=== PATIENT | female | born 1965 ===

== ENCOUNTER 2017-11-05 10:11 | Day surgery (SDC) | payer OTHER ==
--- NOTE | 2017-11-05 10:17 | ED PDOC ---
Arrival/HPI - General Time Seen by Provider: 11/05/17 10:13 Historian: Patient - History of Present Illness Narrative History of Present Illness (Text): 11/05/17 10:16 52 y/o female, pmh including dm, nkda, s/p stent for the obstructing 4.7mm lt. mid ureter stone noted performed on the 11/02/2017, c/o lt. flank pain x 1 week. Pt. stated that she had stent placed on the lt. renal on 10/29/2017, discharge home and told to follow up with the [facility] [place]" by Dr. Patel with the tylenol#3 prescribed to her. Pt. stated that she still has pain which has not completely resolved, no fever or chills, on levaquin now for her renal stone, pain is making her nauseous, no night sweat, no dizziness, no change in vision, no numbness or tingling, no other medical or psychological complaints. Past Medical History - Provider Review Nursing Documentation Reviewed: Yes - Infectious Disease Hx of Infectious Diseases: None - Cardiac Hx Cardiac Disorders: No - Pulmonary Hx Respiratory Disorders: No - Neurological Hx Neurological Disorder: No - HEENT Hx HEENT Disorder: No - Renal Hx Renal Disorder: No - Endocrine/Metabolic Hx Endocrine Disorders: Yes Hx Diabetes Mellitus Type 2: Yes (takes po tabs and victoza) - Hematological/Oncological Hx Blood Disorders: No - Integumentary Hx Dermatological Disorder: No - Musculoskeletal/Rheumatological Hx Musculoskeletal Disorders: Yes Hx Back Pain: Yes Hx Herniated Disk: Yes Other/Comment: HX. TEAR RIGHT SHOULDER. - Gastrointestinal Hx Gastrointestinal Disorders: No - Genitourinary/Gynecological Hx Genitourinary Disorders: Yes Hx Incontinence: Yes - Psychiatric Hx Psychophysiologic Disorder: No Hx Substance Use: No - Surgical History Hx Section: Yes Hx Musculoskeletal Surgery: Yes (RIGHT SHOULDER TEAR REPAIRED) Other/Comment: ETOPIC PREG. SURGERY DONE ONE TUBE AND OVARY REMOVED-PT. BELIEVES RIGHT SIDE. LOWER BACK SURGERY; arm/jaw surgery - Anesthesia Hx Anesthesia: Yes Hx Anesthesia Reactions: No Hx Malignant Hyperthermia: No Family/Social History - Physician Review Nursing Documentation Reviewed: Yes Family/Social History: Unknown Family HX Smoking Status: Never Smoked Hx Alcohol Use: Yes Hx Substance Use: No Allergies/Home Meds Allergies/Adverse Reactions: Allergies No Known Allergies Allergy (Verified 11/05/17 10:29) Home Medications: Home Meds Medication Instructions Recorded Confirmed Metformin HCl 1,000 mg PO BID 10/04/15 11/05/17 Liraglutide [Victoza 2-Nav] 0.6 mg SQ DAILY 10/29/17 11/05/17 Review of Systems - Review of Systems Constitutional: absent: Fatigue, Fevers ENT: absent: Hearing Changes Respiratory: absent: SOB, Cough Cardiovascular: absent: Chest Pain Gastrointestinal: Nausea, Other (lt. flank). absent: Abdominal Pain, Vomiting Musculoskeletal: absent: Arthralgias, Back Pain, Myalgias Skin: absent: Rash, Pruritis, Skin Lesions Neurological: absent: Headache, Dizziness Psychiatric: absent: Anxiety, Depression Physical Exam Vital Signs Reviewed: Yes Vital Signs Temp Pulse Resp BP Pulse Ox 11/05/17 11:45 72 18 123/69 99 11/05/17 10:21 98.2 F 79 18 112/73 98 Temperature: Afebrile Blood Pressure: Normal Pulse: Regular Respiratory Rate: Normal Appearance: Positive for: Well-Appearing, Non-Toxic, Comfortable Pain Distress: Moderate Mental Status: Positive for: Alert and Oriented X 3 - Systems Exam Head: Present: Atraumatic, Normocephalic Pupils: Present: PERRL Extroacular Muscles: Present: EOMI Conjunctiva: Present: Normal Mouth: Present: Moist Mucous Membranes Neck: Present: Normal Range of Motion Respiratory/Chest: Present: Clear to Auscultation, Good Air Exchange. No: Respiratory Distress, Accessory Muscle Use Cardiovascular: Present: Regular Rate and Rhythm, Normal S1, S2. No: Murmurs Abdomen: Present: Tenderness (lt. flank), Normal Bowel Sounds. No: Distention, Peritoneal Signs, Rebound, Guarding Back: Present: Normal Inspection Upper Extremity: Present: Normal Inspection. No: Cyanosis, Edema Lower Extremity: Present: Normal Inspection. No: Edema Neurological: Present: GCS=15, Speech Normal, Motor Func Grossly Intact, Gait Normal, Memory Normal Skin: Present: Warm, Dry, Normal Color. No: Rashes Psychiatric: Present: Alert, Oriented x 3, Normal Insight, Normal Concentration Medical Decision Making ED Course and Treatment: 11/05/17 10:31 -Labs/ua -CT abdomen and pelvis -IVF/toradol -Observe and reassess 11/05/17 11:16 -Dr. Patel called, awared of the patient in the ER and patient called him as well, will take the patient to the OR today again, no imaging needed, admit to him for same day surgery and he will follow up any pending labs and follow up care. -I discussed with DR. Ornelas, agreed on the admission and request me to put in the admission. -CT abdomen/pelvis imaged canceled. 11/05/17 12:26 -Pt. is on the oral fluoroquinolones, UA show trace leuk but she has no urinary symptoms. - Lab Interpretations Lab Results: 11/05/17 10:40 11/05/17 10:40 Lab Results 11/05/17 11:45: Urine Color Yellow, Urine Appearance Turbid, Urine pH 6.5, Ur Specific [place] 1.015, Urine Protein 30 H, Urine Glucose (UA) Negative, Urine Ketones Negative, Urine Blood Large H, Urine Nitrate Negative, Urine Bilirubin Negative, Urine Urobilinogen 0.2, Ur Leukocyte Esterase Trace H, Urine RBC Tntc , Urine WBC 0 - 2, Urine Bacteria Trace 11/05/17 10:40: WBC 8.0, RBC 4.36, Hgb 13.7, Hct 40.2, MCV 92.2, MCH 31.4, MCHC 34.1, RDW 12.9, Plt Count 202, MPV 11.4 H, Gran % 48.0 L, Lymph % (Auto) 42.0 H , [place] % (Auto) 6.5 H, Eos % (Auto) 2.9, Baso % (Auto) 0.6, Gran # 3.86, Lymph # 3.4, [place] # 0.5, Eos # 0.2, Baso # 0.05 11/05/17 10:40: Beta HCG, Quant < 2.39 11/05/17 10:40: Sodium 142, Potassium 3.6, Chloride 101, Carbon Dioxide 27, Anion Gap 18, BUN 12, Creatinine 0.5 L, Est GFR ( Amer) > 60, Est GFR ( Non-Af Amer) > 60, Random Glucose 223 H, Calcium 10.2, Magnesium 1.7, Total Bilirubin 0.9, AST 29, ALT 46, Alkaline Phosphatase 94, Total Protein 8.1, Albumin 4.8, Globulin 3.3, Albumin/Globulin Ratio 1.5 I have reviewed the lab results: Yes - Medication Orders Current Medication Orders: Discontinued Medications Sodium Chloride (Sodium Chloride 0.9%) 500 mls @ 999 mls/hr IV .Q31M STA Stop: 11/05/17 10:55 Last Admin: 11/05/17 10:39 Dose: 999 mls/hr eMAR Start Stop Document 11/05/17 10:39 TA (Rec: 11/05/17 10:39 TA [id number]) Intravenous Solution Start Date 11/05/17 Start Time 10:39 Ketorolac Tromethamine (Toradol) 30 mg IVP STAT STA Stop: 11/05/17 10:26 Last Admin: 11/05/17 10:40 Dose: 30 mg MAR Pain Assessment Document 11/05/17 10:40 TA (Rec: 11/05/17 10:40 TA [id number]) Pain Reassessment Is this a pain reassessment? No Sleep Is patient sleeping during reassessment? No Presence of Pain Presence of Pain Yes Pain Scale Used Pain Scale Used Numeric Location Pain Location Body Site Abdomen Generalized Description Description Sharp Intensity of Pain at present 10 Acceptable Level of Pain 0 Pain Behavior Moaning Guarding IVP Administration Document 11/05/17 10:40 TA (Rec: 11/05/17 10:40 TA [id number]) Charges for Administration # of IVP Administrations 1 - PA / CATTLE DEHORNER / Resident Statement /DO has reviewed & agrees with the documentation as recorded. Disposition/Present on Arrival - Present on Arrival Any Indicators Present on Arrival: No History of DVT/PE: No History of Uncontrolled Diabetes: No Urinary Catheter: No History of Decub. Ulcer: No History Surgical Site Infection Following: None - Disposition Have Diagnosis and Disposition been Completed?: Yes Diagnosis: Flank pain, Kidney stone Disposition: HOSPITALIZED Disposition Time: 11:18 Patient Plan: Admission Patient Problems: Current Active Problems Problem Status Onset Kidney stone Acute Flank pain Acute Condition: STABLE
[2017-11-05 10:21] VITALS: BMI 32.6
[2017-11-05] MEDS ORDERED: Sodium Chloride 0.9% 500 ML IV STA (10:25)
[2017-11-05 10:48] LABS: BASO # 0.05 K/mm3 (0.0-2.0); BASO % 0.6 % (0.0-3.0); EOS # 0.2 (0.0-0.7); EOS % 2.9 % (1.5-5.0); GRAN # 3.86 (1.4-6.5); HEMOGLOBIN 13.7 g/dL (12.0-16.0); LYMPH # 3.4 (1.2-3.4); MEAN CELL VOLUME 92.2 fl (80.0-105.0); MEAN CORPUSCULAR HEMOGLOBIN 31.4 pg (25.0-35.0); MEAN CORPUSCULAR HGB CONC 34.1 g/dl (31.0-37.0); MEAN PLATELET VOLUME 11.4 fl (7.0-11.0); MONO # 0.5 (0.1-0.6); MONO % 6.5 % (1.0-6.0); RBC 4.36 10^6/uL (3.5-6.1); RED CELL DISTRIBUTION WIDTH 12.9 % (11.5-14.5)
[2017-11-05 11:10] LABS: ALB/GLOB RATIO 1.5 (1.1-1.8); ALBUMIN 4.8 g/dL (3.0-4.8); ALT/SGPT 46 U/L (7-56); AST/SGOT 29 U/L (14-36); BLOOD UREA NITROGEN 12 mg/dL (7-21); CALCIUM 10.2 mg/dL (8.4-10.5); GFR AFRICAN-AMERICAN > 60; GFR NON-AFRICAN AMERICAN > 60; MAGNESIUM 1.7 mg/dL (1.7-2.2)
[2017-11-05 12:09] LABS: PH,URINE 6.5 (4.7-8.0); URINE BILIRUBIN NEGATIVE (NEGATIVE); URINE BLOOD LARGE (NEGATIVE); URINE GLUCOSE (UA) NEGATIVE (NEGATIVE); URINE LEUKOCYTE ESTERASE TRACE Leu/uL (NEGATIVE); URINE NITRATE NEGATIVE (NEGATIVE); URINE PROTEIN 30 mg/dL (<30 mg/dL); URINE UROBILINOGEN 0.2 E.U./dL (<1 E.U./dL)
[2017-11-05 12:11] LABS: URINE APPEARANCE TURBID (CLEAR); URINE COLOR YELLOW (YELLOW)
[2017-11-05 12:18] LABS: URINE RBC TNTC /hpf (0-2); URINE WBC 0 - 2 /hpf (0-6)
[2017-11-05 12:19] LABS: URINE BACTERIA TRACE (NEG)
[2017-11-05 12:25] VITALS: RESP 20
[2017-11-05] MEDS ORDERED: Iohexol 240 (50 ml) ONE (13:31)
[2017-11-05] MEDS ORDERED: cefTRIAXone (Rocephin) 1 gm Inj ONE (13:31)
[2017-11-05] MEDS ORDERED: Midazolam 2 MG/2 ML VIAL ONE (13:32)
[2017-11-05] MEDS ORDERED: Propofol 10 mg/ml Inj (20 ML) ONE (13:32)
[2017-11-05] MEDS ORDERED: cefTRIAXone 1 gm 1 GM/100 ML BAG IVPB STA (13:42)
[2017-11-05] MEDS ORDERED: Oxycodone/Acetaminophen 5/325 mg Tab PO PRN (13:46)
[2017-11-05] MEDS ORDERED: HYDROmorphone 0.5 mg/0.5 ml ISec IVP PRN (14:24)
[2017-11-05] MEDS ORDERED: Lactated Ringer's 1,000 ML IV SCH (14:30)
[2017-11-05] MEDS ORDERED: HYDROmorphone 0.5 mg/0.5 ml ISec ONE (14:56)
[2017-11-05] MEDS ORDERED: HYDROmorphone 0.5 mg/0.5 ml ISec IVP ONE (14:58)
[2017-11-05 16:13] VITALS: PULSE 69; TEMP 97.6; O2SAT 97
[2017-11-05 16:34] VITALS: BP 121/75
--- NOTE | 2017-11-05 17:44 | RAD ---
PROCEDURE: Fluoroscopy up to 1 hr. HISTORY: CYSTO / STENT REMOVAL / RETROGRADE PYELOGRAM (LEFT) COMPARISON: None TECHNIQUE: Standard protocol for this study/examination. FINDINGS: Total fluoroscopic time (continuous mode) utilized during the procedure: 4.4 seconds. Total exam DLP: (mGy): 2.21 IMPRESSION: Less than 1 hr fluoroscopic time utilized during performance of the procedure.
--- NOTE | 2017-11-06 01:16 | HP ---
REASON FOR ADMISSION: Treatment of stones. HISTORY OF PRESENT ILLNESS: Ms. Jauregui is a very pleasantly lady, I met her last week. We put a stent in for obstructing stone, we then did an ESWL. At this point, though she is complaining that the stent is bothering her. We were discussing options where I would get the stent out. We did now bring her into Emergency. She went to the Emergency Room. We will bring her to the OR for immediate cysto and stent removal. At the same time though because she has not removed her stones, she said she but she is not sure. Because of this, we are going to actually bring her to the operating room here instead of doing in the office as an emergency and while removing the stent, we are going to also look to make sure there is no residual stones. We did an ESWL. See the previously dictated notes from the [facility]. After discussing options, we are going to the OR immediately. PAST MEDICAL HISTORY: No change since her previous admission. PAST SURGICAL HISTORY: No change since her previous admission. REVIEW OF SYSTEMS: Listed above, otherwise noncontributory. SOCIAL HISTORY: She is here with her boyfriend who has escorted [facility] to the [facility]. PHYSICAL EXAMINATION GENERAL: A well-nourished female, in no apparent distress. She is currently resting comfortably, with a little grimace on her face, she has that look of discomfort. VITAL SIGNS: As noted. ABDOMEN: No real CVA tenderness. DIAGNOSES: Gross hematuria, voiding dysfunction, lot of stent discomfort, urolithiasis, hematuria, hydronephrosis. A very pleasant lady, she is 52 years old. We discussed options at length. At this point, it is before the weekend, I discussed the options, I am concerned about taking up this stent before, but she states her stent is bothering her too much, causing too much discomfort and hematuria. After discussing all the options at length with the patient, we are planning to give the following, we are going to move to the operating room today via the ER. Actually, I removed the stent. When I removed the stent, I was also planning the ureteroscope to make sure everything is okay. If there is any left over stones, I will basket them. I discussed this with the patient. I also explained anything which is indicated in the bladder and the ureter, I will take care of. If they stuff residual up in the kidney, we are not chasing that today. Further plans will follow. Plan is for antibiotic prophylaxis, patient to go to OR immediately and then further plans will follow. Gary Patel MD
--- NOTE | 2017-12-06 20:05 | OP ---
PROCEDURE DATE: 11/05/2017 PREOPERATIVE DIAGNOSES: Urolithiasis, hematuria, hydronephrosis, renal colic. POSTOPERATIVE DIAGNOSES: Urolithiasis, hematuria, hydronephrosis, renal colic. PROCEDURE: Cystoscopy, removal of the double-J stent, a ureteroscopy, a laser lithotripsy, insertion of a double-J stent. COMPLICATIONS: There were no complications. All of this was done on the left side. FINDINGS: There is ureteral stone. INDICATIONS: See history and physical, see also previous notes. Patient had presented previously, we had put a stent in for an emergency, had a cystoscopy and stent insertion. Subsequently patient went home. She was feeling better. She is still having some discomfort. We brought urgent emergent procedure. We have discussed the options with the patient. Risks, benefits, and alternatives were discussed, as well we discussed the ureteroscopy laser. Only after we discussed at length, she is here now for the above procedure. DESCRIPTION OF PROCEDURE: After obtaining informed consent, the patient was brought to the OR, placed on the table. Routine monitors were placed. Time-out was called to confirm the patient, positioning, etc,. The cystoscope was introduced via the urethra. The old double-J stent was identified and removed it with the grasping forceps. The wire was passed up to the kidney without difficulty. Now we kept the safety wire in place, and with the safety wire in place, we went adjacent to that wire and we went up with the ureteroscope. Then with the ureteroscope, we identified the stone and we provided laser energy to the stone, so we fragmented it very nicely. . We then passed a double-J stent with dangles. Patient tolerated the procedure without complications. Gary Patel MD [facility]
== END 2017-11-05 18:00 | disposition home or self-care (01) ==
LOC: ED 10:11 → SDS 11:14
PROVIDERS: ATTEND Urology
DX: N13.2 Hydronephrosis with renal and ureteral calculous obstruction (principal); R31.0 Gross hematuria; E11.9 Type 2 diabetes mellitus without complications; Z79.84 Long term (current) use of oral hypoglycemic drugs
CPT/HCPCS: 52356; 76000; 80053; 81001; 83735; 84702; 85025; 96374; 99284; C1769; J0696; J1170; J1885; J2250; J2704; J3010; J7040; J7120 ×2; Q9966

== ENCOUNTER 2017-12-01 13:41 | Emergency (ER) | payer OTHER ==
[2017-12-01 13:42] VITALS: BMI 32.6
[2017-12-01 14:16] VITALS: RESP 18; TEMP 98
--- NOTE | 2017-12-01 14:59 | ED PDOC ---
Arrival/HPI <Faviola Velasco - Last Filed: 12/02/17 00:12> <Anival Hadley - Last Filed: 12/02/17 02:57> - General Chief Complaint: Abdominal Pain Time Seen by Provider: 12/01/17 14:20 - History of Present Illness Narrative History of Present Illness (Text): 12/01/17 14:54 Pt is a 52 yo F complaining of LLQ pain that refers to the back x 3 days. Pt states she was diagnosed w kidney stones and treated with lithotripsy earlier this month. Pt reports that the pain resolved for awhile and began to intensify 3 days ago but increased daily along with chills. She reports eating breakfast this morning but no BM today; is voiding with a burning sensation. Denies hematuria, fever, sob, cp, nausea, vomiting, diarrhea ,GIB or sick contacts. (Faviola Velasco) Past Medical History - Infectious Disease Hx of Infectious Diseases: None - Reproductive Menopause: Yes - Cardiac Hx Cardiac Disorders: No - Pulmonary Hx Respiratory Disorders: No - Neurological Hx Neurological Disorder: No - HEENT Hx HEENT Disorder: No - Renal Hx Renal Disorder: No - Endocrine/Metabolic Hx Endocrine Disorders: Yes Hx Diabetes Mellitus Type 2: Yes (takes po tabs and victoza) - Hematological/Oncological Hx Blood Transfusions: Yes - Integumentary Hx Dermatological Disorder: No - Musculoskeletal/Rheumatological Hx Musculoskeletal Disorders: Yes - Gastrointestinal Hx Gastrointestinal Disorders: No - Genitourinary/Gynecological Hx Genitourinary Disorders: Yes Hx Incontinence: Yes - Psychiatric Hx Psychophysiologic Disorder: No Hx Substance Use: No - Surgical History Hx Section: Yes Hx Musculoskeletal Surgery: Yes (RIGHT SHOULDER TEAR REPAIRED) Other/Comment: ETOPIC PREG. SURGERY DONE ONE TUBE AND OVARY REMOVED-PT. BELIEVES RIGHT SIDE. LOWER BACK SURGERY; arm/jaw surgery - Anesthesia Hx Anesthesia Reactions: No Hx Malignant Hyperthermia: No <Faviola Velasco - Last Filed: 12/02/17 00:12> Family/Social History - Physician Review Nursing Documentation Reviewed: Yes Family/Social History: Unknown Family HX Smoking Status: Never Smoked Hx Alcohol Use: Yes Hx Substance Use: No <Faviola Velasco - Last Filed: 12/02/17 00:12> Allergies/Home Meds <Faviola Velasco - Last Filed: 12/02/17 00:12> <Anival Hadley - Last Filed: 12/02/17 02:57> Allergies/Adverse Reactions: Allergies No Known Allergies Allergy (Verified 12/01/17 14:16) Home Medications: Home Meds Medication Instructions Recorded Confirmed Metformin HCl 1,000 mg PO BID 10/04/15 12/01/17 Liraglutide [Victoza 2-Nav] 0.6 mg SQ DAILY 10/29/17 12/01/17 Review of Systems - Review of Systems Constitutional: Normal Eyes: Normal ENT: Normal Respiratory: Normal Cardiovascular: Normal Gastrointestinal: Abdominal Pain (LLQ ) Genitourinary Female: Normal Musculoskeletal: Back Pain (left low back) Skin: Normal Neurological: Normal Endocrine: Normal Hemo/Lymphatic: Normal Psychiatric: Normal <Faviola Velasco - Last Filed: 12/02/17 00:12> Physical Exam Temperature: Afebrile Blood Pressure: Normal Pulse: Regular Respiratory Rate: Normal Appearance: Positive for: Uncomfortable Pain Distress: Moderate Mental Status: Positive for: Alert and Oriented X 3 - Systems Exam Head: Present: Atraumatic, Normocephalic Pupils: Present: PERRL Extroacular Muscles: Present: EOMI Conjunctiva: Present: Normal Mouth: Present: Moist Mucous Membranes Neck: Present: Normal Range of Motion Respiratory/Chest: Present: Clear to Auscultation, Good Air Exchange. No: Respiratory Distress, Accessory Muscle Use Cardiovascular: Present: Regular Rate and Rhythm, Normal S1, S2. No: Murmurs Abdomen: Present: Tenderness (LLQ), Normal Bowel Sounds. No: Distention, Peritoneal Signs Back: Present: Normal Inspection, CVA Tenderness (left ) Upper Extremity: Present: Normal Inspection. No: Cyanosis, Edema Lower Extremity: Present: Normal Inspection. No: Edema Neurological: Present: GCS=15, CN II-XII Intact, Speech Normal Skin: Present: Warm, Dry, Normal Color. No: Rashes Psychiatric: Present: Alert, Oriented x 3, Normal Insight, Normal Concentration <Faviola Velasco - Last Filed: 12/02/17 00:12> Vital Signs Temp Pulse Resp BP Pulse Ox 12/01/17 18:37 18 99 12/01/17 16:55 75 18 128/65 98 12/01/17 15:18 79 18 132/69 98 12/01/17 14:13 98 F 82 18 136/72 99 Medical Decision Making <Faviola Velasco - Last Filed: 12/02/17 00:12> <JomarAmirahAlainaCristopher - Last Filed: 12/02/17 02:57> ED Course and Treatment: 12/01/17 14:59 Pt is a 52 yo F complaining of LLQ pain that refers to the back x 3 days. Plan: cbc w diff, cmp, ua, CT abd and pelvis fluids and pain management Progress Note: morphine 2mg ivp NS 1L bolus CT findings benign Advised pt to f/u w her hob grinder if pain continues Dispo home on NSAIDs VSS and Pt ambulated out of ED without issue 12/01/17 15:03 12/02/17 00:10 (Faviola Velasco) - Lab Interpretations Lab Results: 12/01/17 15:00 12/01/17 15:00 Lab Results 12/01/17 17:27: Influenza Typ A,B (EIA) Negative for flu a/b 12/01/17 15:00: Sodium 138, Potassium 3.7, Chloride 102, Carbon Dioxide 21, Anion Gap 18, BUN 18, Creatinine 0.5 L, Est GFR ( Amer) > 60, Est GFR ( Non-Af Amer) > 60, Random Glucose 206 H, Calcium 10.6 H, Total Bilirubin 1.1, AST 24, ALT 32, Alkaline Phosphatase 90, Total Protein 7.8, Albumin 4.6, Globulin 3.2, Albumin/Globulin Ratio 1.4 12/01/17 15:00: WBC 8.2, RBC 4.41, Hgb 14.1, Hct 40.5, MCV 91.8, MCH 32.0, MCHC 34.8, RDW 13.1, Plt Count 165, MPV 11.6 H, Gran % 49.1 L, Lymph % (Auto) 42.7 H , [place] % (Auto) 6.6 H, Eos % (Auto) 1.2 L, Baso % (Auto) 0.4, Gran # 4.04, Lymph # (Auto) 3.5 H, [place] # (Auto) 0.5, Eos # (Auto) 0.1, Baso # (Auto) 0.03 12/01/17 14:56: Urine Color Yellow, Urine Appearance Clear, Urine pH 5.5, Ur Specific [place] >= 1.030, Urine Protein Negative, Urine Glucose (UA) 100 H, Urine Ketones Trace H, Urine Blood Negative, Urine Nitrate Negative, Urine Bilirubin Negative, Urine Urobilinogen 0.2, Ur Leukocyte Esterase Negative - RAD Interpretation Radiology Orders: 12/01/17 14:51 ABDOMEN & PELVIS [ABD & PELVIS W/O PO OR IV CONT] [CT] Stat - Medication Orders Current Medication Orders: Discontinued Medications Sodium Chloride (Sodium Chloride 0.9%) 1,000 mls @ 999 mls/hr IV .Q1H1M STA Stop: 12/01/17 16:04 Last Admin: 12/01/17 16:13 Dose: 999 mls/hr eMAR Start Stop Document 12/01/17 16:13 [email or web address] (Rec: 12/01/17 16:14 [email or web address] [facility] [id number] Intravenous Solution Start Date 12/01/17 Start Time 16:14 End Date 12/01/17 Morphine Sulfate (Morphine) 2 mg IVP STAT STA Stop: 12/01/17 15:05 Last Admin: 12/01/17 16:13 Dose: 2 mg MAR Pain Assessment Document 12/01/17 16:13 [email or web address] (Rec: 12/01/17 16:13 [email or web address] [facility] [id number] Pain Reassessment Is this a pain reassessment? No Sleep Is patient sleeping during reassessment? No Presence of Pain Presence of Pain Yes Pain Scale Used Pain Scale Used Numeric Location Pain Location Body Site Abdomen Description Description Constant Intensity of Pain at present 8 Pain Behavior Facial Grimacing Aggravating Factors Changing Position Alleviating Factors/Management Medication Techniques Alleviating Factors Medication IVP Administration Document 12/01/17 16:13 [email or web address] (Rec: 12/01/17 16:13 [email or web address] [facility] [id number] Charges for Administration # of IVP Administrations 1 Ondansetron HCl (Zofran Inj) 4 mg IVP STAT STA Stop: 12/01/17 15:43 Last Admin: 12/01/17 16:12 Dose: 4 mg IVP Administration Document 12/01/17 16:12 [email or web address] (Rec: 12/01/17 16:12 [email or web address] [facility] [id number] Charges for Administration # of IVP Administrations 1 - PA / [employer]STAIRS MAID / Resident Statement / has reviewed & agrees with the documentation as recorded. <JomarValCristopher - Last Filed: 12/02/17 02:57> Disposition/Present on Arrival - Present on Arrival Any Indicators Present on Arrival: Yes History of DVT/PE: No History of Uncontrolled Diabetes: No Urinary Catheter: No History of Decub. Ulcer: No History Surgical Site Infection Following: None - Disposition Have Diagnosis and Disposition been Completed?: Yes Disposition Time: 18:40 Patient Plan: Discharge <Faviola Velasco - Last Filed: 12/02/17 00:12> <Anival Hadley - Last Filed: 12/02/17 02:57> - Disposition Diagnosis: Abdominal pain, Flank pain, Back pain Disposition: HOME/ ROUTINE Condition: STABLE Discharge Instructions (ExitCare): Ibuprofen (By mouth), Abdominal Pain (ED), Back Pain (ED) Additional Instructions: Dear Patient, You have been diagnosed with abdominal and back pain that responds best with fluids, tylenol or ibuprofen for pain and fever and gentle movement. We recommend that you follow up with your hob grinder for evaluation of post- procedure pain that you have been experiencing. If you experience severe fever, pain, chest pain or shortness of breath of any other alarming symptoms, return to the emergency randy immediately. All the best in your recover Prescriptions: Naproxen [Naprosyn] 500 mg PO BID 5 Days #10 tablet Referrals: Iesha Villagomez DO [Primary Care Provider] - Follow up with primary Forms: [employer] ([employer])
[2017-12-01 15:15] LABS: BASO # 0.03 K/mm3 (0.0-2.0); BASO % 0.4 % (0.0-3.0); EOS # 0.1 (0.0-0.7); EOS % 1.2 % (1.5-5.0); GRAN # 4.04 (1.4-6.5); GRAN % 49.1 % (50.0-68.0); HEMOGLOBIN 14.1 g/dL (12.0-16.0); LYMPH # 3.5 (1.2-3.4); LYMPH % 42.7 % (22.0-35.0); MEAN CELL VOLUME 91.8 fl (80.0-105.0); MEAN CORPUSCULAR HGB CONC 34.8 g/dl (31.0-37.0); MEAN PLATELET VOLUME 11.6 fl (7.0-11.0); MONO # 0.5 (0.1-0.6); MONO % 6.6 % (1.0-6.0); RBC 4.41 10^6/uL (3.5-6.1); RED CELL DISTRIBUTION WIDTH 13.1 % (11.5-14.5); WHITE BLOOD COUNT 8.2 10^3/ul (4.5-11.0)
[2017-12-01 15:20] LABS: PH,URINE 5.5 (4.7-8.0); URINE BILIRUBIN NEGATIVE (NEGATIVE); URINE BLOOD NEGATIVE (NEGATIVE); URINE GLUCOSE (UA) 100 mg/dL (NEGATIVE); URINE LEUKOCYTE ESTERASE NEGATIVE Leu/uL (NEGATIVE); URINE NITRATE NEGATIVE (NEGATIVE); URINE PROTEIN NEGATIVE mg/dL (<30 mg/dL); URINE UROBILINOGEN 0.2 E.U./dL (<1 E.U./dL)
[2017-12-01 15:21] LABS: URINE APPEARANCE CLEAR (CLEAR); URINE COLOR YELLOW (YELLOW)
[2017-12-01 15:32] LABS: ALB/GLOB RATIO 1.4 (1.1-1.8); ALBUMIN 4.6 g/dL (3.0-4.8); ALT/SGPT 32 U/L (7-56); AST/SGOT 24 U/L (14-36); BLOOD UREA NITROGEN 18 mg/dL (7-21); CALCIUM 10.6 mg/dL (8.4-10.5); GFR AFRICAN-AMERICAN > 60; GFR NON-AFRICAN AMERICAN > 60
[2017-12-01] MEDS: Morphine 4 mg/ml ISec IVP STA (16:13)
[2017-12-01] MEDS: Sodium Chloride 0.9% 1,000 ML IV STA (16:13)
[2017-12-01 16:56] VITALS: BP 128/65; PULSE 75
--- NOTE | 2017-12-01 17:05 | CT ---
PROCEDURE: CT Abdomen and Pelvis without intravenous contrast HISTORY: Renal calculus disease presenting with left-sided flank pain. Relevant surgical history: Oophorectomy. COMPARISON: 10/29/2017 TECHNIQUE: Unenhanced study. Neither oral nor intravenous contrast administered. Radiation dose: Total exam DLP = 980.24 mGy-cm. This CT exam was performed using one or more of the following dose reduction techniques: Automated exposure control, adjustment of the mA and/or kV according to patient size, and/or use of iterative reconstruction technique. FINDINGS: LOWER THORAX: Unremarkable. LIVER: Unremarkable. No gross lesion or ductal dilatation. GALLBLADDER AND BILE DUCTS: Unremarkable. PANCREAS: Unremarkable. No gross lesion or ductal dilatation. SPLEEN: Unremarkable. ADRENALS: Unremarkable. No mass. KIDNEYS AND URETERS: Unremarkable. No hydronephrosis. No solid mass. Obstructing calculus apparent on the previous study left ureter has passed. No evidence of hydroureter, hydronephrosis, calculus disease. VASCULATURE: Unremarkable. No aortic aneurysm. BOWEL: Unremarkable. No obstruction. No gross mural thickening. APPENDIX: Unremarkable. Normal appendix. PERITONEUM: Unremarkable. No free fluid. No free air. LYMPH NODES: Unremarkable. No enlarged lymph nodes. BLADDER: Unremarkable. REPRODUCTIVE: Unremarkable. BONES: No acute fracture. OTHER FINDINGS: None. IMPRESSION: Unremarkable non contrast enhanced CT of the abdomen and pelvis.
[2017-12-01 18:38] VITALS: O2SAT 99
== END 2017-12-01 18:46 | disposition home or self-care (01) ==
LOC: ED 13:41
DX: R10.9 Unspecified abdominal pain (principal); M54.9 Dorsalgia, unspecified; E11.9 Type 2 diabetes mellitus without complications
CPT/HCPCS: 74176; 80053; 81003; 85025; 87804; 96374; 96375; 99284; J2270; J2405; J7040

== ENCOUNTER 2018-02-25 20:59 | Observation (INO) | payer OTHER ==
[2018-02-25 21:11] VITALS: BMI 32.1
[2018-02-25] MEDS ORDERED: Sodium Chloride 0.9% 1,000 ML IV STA (21:32)
[2018-02-25] MEDS ORDERED: HYDROmorphone 0.5 mg/0.5 ml ISec IVP STA (21:32)
--- NOTE | 2018-02-25 21:51 | ED PDOC ---
Arrival/HPI - General Chief Complaint: Abdominal Pain Time Seen by Provider: 02/25/18 21:18 Historian: Patient - History of Present Illness Narrative History of Present Illness (Text): 02/25/18 21:49 52 year old female whose past medical history includes diabetes, kidney stone s/ p stent for the obstructing 4.7mm lt. mid ureter stone noted performed on the , presents to the emergency department complaining of left flank discomfort with urinary blood clots. Patient states she had another stent placed 4 days ago by her substation inspector Dr. Patel. patient states she was having mild discomfort following procedure. However, today patient reports worsening discomfort. She was seen by her Doctor and had her stent removed today , but continues to be symptomatic. Patient denies any fever, chills, chest pain , shortness of breath, nausea, vomiting, diarrhea, neck pain, headache, dizziness, or any other complaints. Solids Control Technician: Dr. Patel. PMD: Dr. Villagomez Time/Duration: 1 week Symptom Onset: Gradual Symptom Course: Worsening Activities at Onset: Light Context: Home Past Medical History - Provider Review Nursing Documentation Reviewed: Yes - Infectious Disease Hx of Infectious Diseases: None - Reproductive Menopause: No - Cardiac Hx Cardiac Disorders: No - Pulmonary Hx Respiratory Disorders: No - Neurological Hx Neurological Disorder: No - HEENT Hx HEENT Disorder: No - Renal Hx Renal Disorder: No - Endocrine/Metabolic Hx Endocrine Disorders: Yes Hx Diabetes Mellitus Type 2: Yes (takes po tabs and victoza) - Hematological/Oncological Hx Blood Transfusions: Yes - Integumentary Hx Dermatological Disorder: No - Musculoskeletal/Rheumatological Hx Musculoskeletal Disorders: Yes - Gastrointestinal Hx Gastrointestinal Disorders: No - Genitourinary/Gynecological Hx Genitourinary Disorders: Yes Hx Incontinence: Yes - Psychiatric Hx Psychophysiologic Disorder: No Hx Substance Use: No - Surgical History Hx Section: Yes Hx Musculoskeletal Surgery: Yes (RIGHT SHOULDER TEAR REPAIRED) Other/Comment: ETOPIC PREG. SURGERY DONE ONE TUBE AND OVARY REMOVED-PT. BELIEVES RIGHT SIDE. LOWER BACK SURGERY; arm/jaw surgery - Anesthesia Hx Anesthesia Reactions: No Hx Malignant Hyperthermia: No Family/Social History - Physician Review Nursing Documentation Reviewed: Yes Family/Social History: No Known Family HX Smoking Status: Never Smoked Hx Alcohol Use: Yes Hx Substance Use: No Allergies/Home Meds Allergies/Adverse Reactions: Allergies No Known Allergies Allergy (Verified 12/01/17 14:16) Home Medications: Home Meds Medication Instructions Recorded Confirmed Metformin HCl 1,000 mg PO BID 10/04/15 12/01/17 Liraglutide [Victoza 2-Nav] 0.6 mg SQ DAILY 10/29/17 12/01/17 Review of Systems - Physician Review All systems were reviewed & negative as marked: Yes - Review of Systems Constitutional: absent: Fevers, Other (Chills) Respiratory: absent: SOB Cardiovascular: absent: Chest Pain Gastrointestinal: absent: Diarrhea, Nausea, Vomiting Genitourinary Female: Hematuria. absent: Dysuria, Frequency Musculoskeletal: Back Pain (Left flank discomfort). absent: Neck Pain Neurological: absent: Headache, Dizziness Physical Exam Vital Signs Reviewed: Yes Vital Signs Temp Pulse Resp BP Pulse Ox 02/26/18 02:00 88 16 122/76 99 02/26/18 00:18 77 16 122/73 99 02/25/18 22:48 93 H 16 130/83 99 02/25/18 21:07 97.6 F 106 H 20 139/85 98 Temperature: Afebrile Blood Pressure: Normal Pulse: Tachycardic Respiratory Rate: Normal Appearance: Positive for: Well-Appearing, Non-Toxic, Comfortable Pain Distress: Mild Mental Status: Positive for: Alert and Oriented X 3 Finger Stick Blood Glucose: 282 - Systems Exam Head: Present: Atraumatic, Normocephalic Pupils: Present: PERRL Extroacular Muscles: Present: EOMI Conjunctiva: Present: Normal Mouth: Present: Moist Mucous Membranes Neck: Present: Normal Range of Motion Respiratory/Chest: Present: Clear to Auscultation, Good Air Exchange. No: Respiratory Distress, Accessory Muscle Use Cardiovascular: Present: Regular Rate and Rhythm, Normal S1, S2. No: Murmurs Abdomen: No: Tenderness, Distention, Peritoneal Signs Back: Present: Other (Left Costovertebral Tenderness) Upper Extremity: Present: Normal Inspection. No: Cyanosis, Edema Lower Extremity: Present: Normal Inspection. No: Edema Neurological: Present: GCS=15, CN II-XII Intact, Speech Normal Skin: Present: Warm, Dry, Normal Color. No: Rashes Psychiatric: Present: Alert, Oriented x 3, Normal Insight, Normal Concentration Medical Decision Making ED Course and Treatment: 02/25/18 21:49 Impression: 52 year old female presents complaining of worsening left flank discomfort that began approximately a week ago associated with hematuria. Plan: -- CT Abd & Pelvis -- Labs -- Dilaudid, IV Fluids, Zofran Inj -- Urinalysis -- Reassess and disposition Progress Notes: EXAM: CT Abdomen and Pelvis Without Intravenous Contrast Dictated and Authenticated by: Travis Barron MD 02/25/2018 11:37 PM IMPRESSION: 1. LEFT hydroureteronephrosis without CT evidence of obstructing calculus. DDX: obstructing radiolucent stone, recently passed ureteral calculus, distal ureteral stricture , infection, distal obstructing ureteral mass. Clinical correlation and follow up are recommended. 2. Incidental/non-acute findings are described above. 02/26/18 02:12 Case discussed with who request pt. admitted to hospitalist service.He will consult.Power Equipment Technology Instructor and Dr. Edwards who is aware and agrees with the plan. Accepts patient into hospitalist service. - Lab Interpretations Lab Results: 02/25/18 22:00 02/25/18 22:00 Lab Results 02/25/18 23:45: Urine Color Red, Urine Appearance Bloody, Urine pH 6.5, Ur Specific Mcintosh 1.020, Urine Protein >=300 H, Urine Glucose (UA) 250 H, Urine Ketones Trace H, Urine Blood Large H, Urine Nitrate Positive H, Urine Bilirubin Negative, Urine Urobilinogen 1.0 H, Ur Leukocyte Esterase Moderate H, Urine RBC Tntc, Urine WBC 20 - 25, Ur Epithelial Cells 0 - 2, Urine Bacteria Mod 02/25/18 22:00: WBC 10.4 D, RBC 4.31, Hgb 13.6, Hct 38.7, MCV 89.8, MCH 31.6, MCHC 35.1, RDW 12.5, Plt Count 190, MPV 11.9 H 02/25/18 22:00: Sodium 139, Potassium 3.8, Chloride 99, Carbon Dioxide 24, Anion Gap 19, BUN 20, Creatinine 0.6 L, Est GFR ( Amer) > 60, Est GFR ( Non-Af Amer) > 60, Random Glucose 285 H, Calcium 10.0, Total Bilirubin 0.8, AST 23, ALT 30, Alkaline Phosphatase 91, Total Protein 7.6, Albumin 4.5, Globulin 3.1, Albumin/Globulin Ratio 1.4, Lipase 62 02/25/18 21:12: POC Glucose (mg/dL) 282 H I have reviewed the lab results: Yes - RAD Interpretation Radiology Orders: 02/25/18 21:35 ABD & PELVIS W/O PO OR IV CONT [CT] Stat - Medication Orders Current Medication Orders: Docusate Sodium (Colace) 100 mg PO STAT STA Stop: 02/26/18 03:47 Enoxaparin Sodium (Lovenox) 40 mg SC DAILY [facility] PRN Reason: Protocol Sodium Chloride (Sodium Chloride 0.9%) 1,000 mls @ 120 mls/hr IV .Q8H20M [facility] Ceftriaxone Sodium (Rocephin 1 Gram Ivpb) 1 gm in 100 mls @ 100 mls/hr IVPB DAILY [facility] PRN Reason: Protocol Insulin Human Regular (Humulin R Med) 0 units SC ACHS [facility] PRN Reason: Protocol Morphine Sulfate (Morphine) 2 mg IVP Q4H PRN PRN Reason: Pain, severe (8-10) Morphine Sulfate (Morphine) 1 mg IVP STAT STA Stop: 02/26/18 03:47 Non-Formulary Medication (Naproxen [Naprosyn]) 500 mg PO BID [facility] Ondansetron HCl (Zofran Inj) 4 mg IVP Q4H PRN PRN Reason: Nausea/Vomiting Pantoprazole Sodium (Protonix Ec Tab) 40 mg PO 0600 [facility] Discontinued Medications Hydromorphone HCl (Dilaudid) 1 mg IVP STAT STA Stop: 02/25/18 21:33 Last Admin: 02/25/18 22:01 Dose: 1 mg MAR Pain Assessment Document 02/25/18 22:01 JO (Rec: 02/25/18 22:01 [id number] Pain Reassessment Is this a pain reassessment? No Sleep Is patient sleeping during reassessment? No Presence of Pain Presence of Pain Yes Pain Scale Used Pain Scale Used Numeric IVP Administration Document 02/25/18 22:01 JO (Rec: 02/25/18 22:01 [id number] Charges for Administration # of IVP Administrations 1 Hydromorphone HCl (Dilaudid) 1 mg IVP STAT STA Stop: 02/26/18 02:10 Last Admin: 02/26/18 02:44 Dose: 1 mg MAR Pain Assessment Document 02/26/18 02:44 MS (Rec: 02/26/18 02:45 MS [id number]) Pain Reassessment Is this a pain reassessment? No Sleep Is patient sleeping during reassessment? No Presence of Pain Presence of Pain Yes Pain Scale Used Pain Scale Used Numeric Location Left, Right or Bilateral Left Description Description Constant Intensity of Pain at present 10 Pain Behavior Moaning Withdrawal from Touch Rubbing Site IVP Administration Document 02/26/18 02:44 MS (Rec: 02/26/18 02:45 MS [id number]) Charges for Administration # of IVP Administrations 2 Sodium Chloride (Sodium Chloride 0.9%) 1,000 mls @ 999 mls/hr IV .Q1H1M STA Stop: 02/25/18 22:32 Last Admin: 02/25/18 22:02 Dose: 999 mls/hr eMAR Start Stop Document 02/25/18 22:02 JOL (Rec: 02/25/18 22:02 [id number]) Intravenous Solution Start Date 02/25/18 Start Time 22:02 End Date 02/25/18 End time 23:03 Total Infusion Time 61 Ceftriaxone Sodium (Rocephin 1 Gram Ivpb) 1 gm in 100 mls @ 200 mls/hr IV ONCE STA PRN Reason: Protocol Stop: 02/26/18 02:38 Last Admin: 02/26/18 02:42 Dose: 200 mls/hr eMAR Start Stop Document 02/26/18 02:42 MS (Rec: 02/26/18 02:44 MS [id number]) Intravenous Solution Start Date 02/26/18 Start Time 02:44 End Date 02/26/18 End time 03:14 Total Infusion Time 30 Ondansetron HCl (Zofran Inj) 4 mg IVP ONCE ONE Stop: 02/25/18 21:33 Last Admin: 02/25/18 22:02 Dose: 4 mg IVP Administration Document 02/25/18 22:02 JOL (Rec: 02/25/18 22:02 [id number]) Charges for Administration # of IVP Administrations 1 Ondansetron HCl (Zofran Inj) 4 mg IVP ONCE ONE Stop: 02/26/18 02:10 Last Admin: 02/26/18 02:45 Dose: 4 mg IVP Administration Document 02/26/18 02:45 MS (Rec: 02/26/18 02:45 MS [id number]) Charges for Administration # of IVP Administrations 1 - Scribe Statement The provider has reviewed the documentation as recorded by the Alexandria Culp Provider Scribe Attestation: All medical record entries made by the Nateibmalena were at my direction and personally dictated by me. I have reviewed the chart and agree that the record accurately reflects my personal performance of the history, physical exam, medical decision making, and the department course for this patient. I have also personally directed, reviewed, and agree with the discharge instructions and disposition. Disposition/Present on Arrival - Present on Arrival Any Indicators Present on Arrival: No History of DVT/PE: No History of Uncontrolled Diabetes: No Urinary Catheter: No History of Decub. Ulcer: No History Surgical Site Infection Following: None - Disposition Have Diagnosis and Disposition been Completed?: Yes Diagnosis: Intractable back pain, Flank pain, Hematuria, UTI (urinary tract infection) Disposition: HOSPITALIZED Disposition Time: 02:08 Patient Plan: Observation Patient Problems: Current Active Problems Problem Status Onset Flank pain Acute Hematuria Acute Intractable back pain Acute UTI (urinary tract infection) Acute Condition: STABLE
[2018-02-25 22:14] LABS: HEMOGLOBIN 13.6 g/dL (12.0-16.0); MEAN CELL VOLUME 89.8 fl (80.0-105.0); MEAN CORPUSCULAR HEMOGLOBIN 31.6 pg (25.0-35.0); MEAN CORPUSCULAR HGB CONC 35.1 g/dl (31.0-37.0); MEAN PLATELET VOLUME 11.9 fl (7.0-11.0); RBC 4.31 10^6/uL (3.5-6.1); RED CELL DISTRIBUTION WIDTH 12.5 % (11.5-14.5); WHITE BLOOD COUNT 10.4 10^3/ul (4.5-11.0)
[2018-02-25 22:21] LABS: ALB/GLOB RATIO 1.4 (1.1-1.8); ALBUMIN 4.5 g/dL (3.0-4.8); ALT/SGPT 30 U/L (7-56); AST/SGOT 23 U/L (14-36); BLOOD UREA NITROGEN 20 mg/dL (7-21); GFR AFRICAN-AMERICAN > 60; GFR NON-AFRICAN AMERICAN > 60; LIPASE 62 U/L (23-300)
--- NOTE | 2018-02-25 23:37 | CT ---
EXAM: CT Abdomen and Pelvis Without Intravenous Contrast CLINICAL HISTORY: 52 years old, female; Pain; Abdominal pain; Flank; Left; Additional info: Left flank pain TECHNIQUE: Axial computed tomography images of the abdomen and pelvis without intravenous contrast. All CT scans at this facility use one or more dose reduction techniques, viz.: automated exposure control; ma/kV adjustment per patient size (including targeted exams where dose is matched to indication; i.e. head); or iterative reconstruction technique. Coronal and sagittal reformatted images were created and reviewed. COMPARISON: CT - ABD PELVIS W/O PO OR IV CONT 2017-12-01 16:22 FINDINGS: Limitations: Lack of intravenous contrast. Lung bases: Minimal atelectasis/scarring. RLL calcified granuloma. ABDOMEN: Liver: Fatty infiltration. Gallbladder and bile ducts: No calcified stones. No ductal dilation. Pancreas: Unremarkable. No ductal dilation. Spleen: No splenomegaly. Adrenals: No mass. Kidneys and ureters: No renal calculi. Mild to moderate stranding about LEFT kidney. [id number] pelvocaliectasis of LEFT kidney. Mildly dilated LEFT ureter. Mild stranding about LEFT ureter. Stomach and bowel: No definite mural thickening. No obstruction. PELVIS: Appendix: Normal caliber. No inflammation. Bladder: Unremarkable. No stones. Reproductive: Unremarkable as visualized. ABDOMEN and PELVIS: Intraperitoneal space: No significant fluid collection. No free air. Bones/joints: Early to mild degenerative changes of spine. Degenerative anterolisthesis of lower lumbar spine. No acute fracture. Soft tissues: Tiny umbilical hernia containing fat. Vasculature: Unremarkable. No aneurysm. Lymph nodes: No pathologically enlarged lymph nodes. IMPRESSION: 1. LEFT hydroureteronephrosis without CT evidence of obstructing calculus. DDX: obstructing radiolucent stone, recently passed ureteral calculus, distal ureteral stricture, infection, distal obstructing ureteral mass. Clinical correlation and follow up are recommended. 2. Incidental/non-acute findings are described above.
[2018-02-26 00:59] LABS: PH,URINE 6.5 (4.7-8.0); URINE BILIRUBIN NEGATIVE (NEGATIVE); URINE BLOOD LARGE (NEGATIVE); URINE GLUCOSE (UA) 250 mg/dL (NEGATIVE); URINE LEUKOCYTE ESTERASE MODERATE Leu/uL (NEGATIVE); URINE PROTEIN >=300 mg/dL (<30 mg/dL)
[2018-02-26 01:09] LABS: URINE APPEARANCE BLOODY (CLEAR); URINE COLOR RED (YELLOW)
[2018-02-26] MEDS ORDERED: HYDROmorphone 0.5 mg/0.5 ml ISec IVP STA (02:09)
[2018-02-26] MEDS ORDERED: cefTRIAXone 1 gm 1 GM/100 ML BAG IV STA (02:09)
[2018-02-26 02:15] LABS: URINE RBC TNTC /hpf (0-2)
[2018-02-26 02:16] LABS: URINE WBC 20 - 25 /hpf (0-6)
[2018-02-26 02:17] LABS: URINE BACTERIA MOD (NEG); URINE EPITHELIAL CELLS 0 - 2 /hpf (0-5)
[2018-02-26] MEDS ORDERED: Morphine 2 mg/2 mL syringe IVP STA (03:46)
[2018-02-26] MEDS ORDERED: Morphine 2 mg/2 mL syringe IVP PRN (03:46)
[2018-02-26] MEDS ORDERED: Sodium Chloride 0.9% 1,000 ML IV SCH (04:00)
--- NOTE | 2018-02-26 04:02 | CP.PCM.HP ---
<Joe Vallejo - Last Filed: 02/26/18 03:57> History of Present Illness - History of Present Illness History of Present Illness: Medicine H&P: Dr. Edwards Chief Complaint: Flank Pain HPI: 52 year old female with past medical history of Diabetes and Chronic nephrolithiasis presents with 2 day duration of left sided flank pain. Patient recently had stent removed by Dr. Patel but is still having intractible pain. Patient also complains of nausea and hematuria but denies fevers or chills. Patient further complains of left lower extremity calf pain. Review of Systems: 12 point ROS obtained and negative except as per HPI Surgical History: x1, Right salpingoophorectomy for atopic , R shdr surgery Medical History: Type II Diabetes Allergies: NKDA Surgical History: Denies tobacco, alcohol, and illicit drug use Home Meds: Per MAR, reviewed Family History: Non-contributory PMD: Dr. Villagomez Urologist: Dr. Patel Present on Admission - Present on Admission Any Indicators Present on Admission: No Past Patient History - Infectious Disease Hx of Infectious Diseases: None - Past Medical History & Family History Past Medical History?: Yes - Past Social History Smoking Status: Never Smoked - CARDIAC Hx Cardiac Disorders: No - PULMONARY Hx Respiratory Disorders: No - NEUROLOGICAL Hx Neurological Disorder: No - HEENT Hx HEENT Problems: No - RENAL Hx Chronic Kidney Disease: No - ENDOCRINE/METABOLIC Hx Endocrine Disorders: Yes Hx Diabetes Mellitus Type 2: Yes (takes po tabs and victoza) - HEMATOLOGICAL/ONCOLOGICAL Hx Blood Transfusions: Yes - INTEGUMENTARY Hx Dermatological Problems: No - MUSCULOSKELETAL/RHEUMATOLOGICAL Hx Musculoskeletal Disorders: Yes - GASTROINTESTINAL Hx Gastrointestinal Disorders: No - GENITOURINARY/GYNECOLOGICAL Hx Genitourinary Disorders: Yes Hx Incontinence: Yes - PSYCHIATRIC Hx Psychophysiologic Disorder: No Hx Substance Use: No - SURGICAL HISTORY Hx Section: Yes Hx Musculoskeletal Surgery: Yes (RIGHT SHOULDER TEAR REPAIRED) Other/Comment: ETOPIC PREG. SURGERY DONE ONE TUBE AND OVARY REMOVED-PT. BELIEVES RIGHT SIDE. LOWER BACK SURGERY; arm/jaw surgery - ANESTHESIA Hx Anesthesia Reactions: No Hx Malignant Hyperthermia: No Meds Allergies/Adverse Reactions: Allergies Allergy/AdvReac Type Severity Reaction Status Date / Time No Known Allergies Allergy Verified 12/01/17 14:16 Physical Exam - Constitutional Appears: Well - Head Exam Head Exam: ATRAUMATIC, NORMAL INSPECTION, NORMOCEPHALIC - Eye Exam Eye Exam: EOMI, Normal appearance, PERRL Pupil Exam: NORMAL ACCOMODATION, PERRL - ENT Exam ENT Exam: Mucous Membranes Moist, Normal Exam - Neck Exam Neck exam: Positive for: Normal Inspection - Respiratory Exam Respiratory Exam: Clear to Auscultation Bilateral, NORMAL BREATHING PATTERN - Cardiovascular Exam Cardiovascular Exam: REGULAR RHYTHM - GI/Abdominal Exam GI & Abdominal Exam: Normal Bowel Sounds, Soft. absent: Tenderness - Extremities Exam Extremities exam: Positive for: normal inspection - Back Exam Back exam: CVA tenderness (L), NORMAL INSPECTION - Neurological Exam Neurological exam: Alert, CN II-XII Intact, Normal Gait, Oriented x3, Reflexes Normal - Psychiatric Exam Psychiatric exam: Normal Affect, Normal Mood - Skin Skin Exam: Dry, Intact, Normal Color, Warm Results - Vital Signs Recent Vital Signs: Last Vital Signs Temp 97.6 F 02/25/18 21:07 Pulse 88 02/26/18 02:00 Resp 16 02/26/18 02:00 BP 122/76 02/26/18 02:00 Pulse Ox 99 02/26/18 02:00 - Labs Result Diagrams: 02/25/18 22:00 02/25/18 22:00 Assessment & Plan - Assessment and Plan (Free Text) Assessment: 52 year old female with pertinent medical history of nephrolithiasis s/p stent placement and removal. Patient's CT showed hydronephrosis without obsructing stone. Patient's white count normal, no SIRS criteria except for tachycardia, probably due to pain, but UA showed UTI. Patient also complained of left lower extremity calf pain and recently had surgical procedure. Plan: Flank pain 2/2 Hydronephrosis - Morphine prn, Zofran prn Docusate to prevent constipation - Normal Saline @ 120/hr - Urology consult: Dr. Patel UTI likely 2/2 Urinary Obstruction - Rocephin, Normal Saline Left Lower Extremity Calf tenderness - Duplex bilateral History of Diabetes - RISS Medium - Accuchecks ACHS GI/DVT Prophylaxis - Protonix/Lovenox Patient can be switched to SCD's once Duplex negative and she is able to ambulate <Jordan Edwards - Last Filed: 02/26/18 04:37> Results - Vital Signs Recent Vital Signs: Last Vital Signs Temp 97.6 F 02/25/18 21:07 Pulse 88 02/26/18 02:00 Resp 16 02/26/18 02:00 BP 122/76 02/26/18 02:00 Pulse Ox 99 02/26/18 02:00 - Labs Result Diagrams: 02/25/18 22:00 02/25/18 22:00 Attending/Attestation - Attestation I have personally seen and examined this patient.: Yes I have fully participated in the care of the patient.: Yes I have reviewed all pertinent clinical information: Yes Notes (Text): 02/26/18 04:32 Patient was seen in 570-01. Medical record was reviewed. Agree with history, physical examination, assessment and plan. Ectopic (Not atropic) . Has history of frequent headaches. Has family history of DM. She is obese, has history of asthma, GERD.
[2018-02-26 05:13] VITALS: RESP 20
[2018-02-26] MEDS ORDERED: Pantoprazole 40 mg EC Tab PO SCH (06:00)
[2018-02-26] MEDS ORDERED: Insulin Reg-MEDIUM-Coverage SC SCH (07:30)
[2018-02-26 07:32] LABS: BASO # 0.03 K/mm3 (0.0-2.0); BASO % 0.4 % (0.0-3.0); EOS # 0.2 (0.0-0.7); EOS % 2.5 % (1.5-5.0); GRAN # 4.22 (1.4-6.5); GRAN % 52.4 % (50.0-68.0); HEMOGLOBIN 12.3 g/dL (12.0-16.0); MEAN CORPUSCULAR HEMOGLOBIN 30.9 pg (25.0-35.0); MEAN PLATELET VOLUME 11.8 fl (7.0-11.0); MONO # 0.6 (0.1-0.6); MONO % 7.7 % (1.0-6.0); RBC 3.98 10^6/uL (3.5-6.1); RED CELL DISTRIBUTION WIDTH 12.8 % (11.5-14.5); WHITE BLOOD COUNT 8.1 10^3/ul (4.5-11.0)
[2018-02-26 08:19] LABS: ALB/GLOB RATIO 1.4 (1.1-1.8); ALBUMIN 3.9 g/dL (3.0-4.8); ALT/SGPT 31 U/L (7-56); AST/SGOT 21 U/L (14-36); BLOOD UREA NITROGEN 16 mg/dL (7-21); CALCIUM 8.8 mg/dL (8.4-10.5); GFR AFRICAN-AMERICAN > 60; GFR NON-AFRICAN AMERICAN > 60
[2018-02-26] MEDS ORDERED: Potassium Chloride 40 mEq/30 ml LIQ UD PO ONE (09:10)
[2018-02-26] MEDS ORDERED: Magnesium Sulfate 2 GM in Sodium Chloride 0.9% 100 ML IVPB ONE (09:10)
[2018-02-26] MEDS ORDERED: Enoxaparin 40 mg Syringe SC SCH (10:00)
[2018-02-26] MEDS ORDERED: Naproxen 550 mg Tab PO SCH (10:00)
--- NOTE | 2018-02-26 12:00 | CP.PCM.DIS ---
<Braxton Wright - Last Filed: 02/26/18 13:22> Provider - Provider Date of Admission: 02/26/18 02:12 Attending physician: Wendy Cardona MD Primary care physician: Iesha Villagomez DO Consults: Urology: Michael Patel Time Spent in preparation of Discharge (in minutes): 25 Diagnosis - Discharge Diagnosis (1) Hydronephrosis Status: Acute Priority: High (2) Flank pain Status: Acute Priority: High (3) UTI (urinary tract infection) Status: Acute Priority: Medium (4) Kidney stone Status: Suspected Priority: Medium Hospital Course - Lab Results Lab Results: Most Recent Lab Values WBC 8.1 10^3/ul (4.5-11.0) D 02/26/18 06:40 RBC 3.98 10^6/uL (3.5-6.1) 02/26/18 06:40 Hgb 12.3 g/dL (12.0-16.0) 02/26/18 06:40 Hct 36.2 % (36.0-48.0) 02/26/18 06:40 MCV 91.0 fl (80.0-105.0) 02/26/18 06:40 MCH 30.9 pg (25.0-35.0) 02/26/18 06:40 MCHC 34.0 g/dl (31.0-37.0) 02/26/18 06:40 RDW 12.8 % (11.5-14.5) 02/26/18 06:40 Plt Count 180 10^3/uL (120.0-450.0) 02/26/18 06:40 MPV 11.8 fl (7.0-11.0) H 02/26/18 06:40 Gran % 52.4 % (50.0-68.0) 02/26/18 06:40 Lymph % (Auto) 37.0 % (22.0-35.0) H 02/26/18 06:40 Page % (Auto) 7.7 % (1.0-6.0) H 02/26/18 06:40 Eos % (Auto) 2.5 % (1.5-5.0) 02/26/18 06:40 Baso % (Auto) 0.4 % (0.0-3.0) 02/26/18 06:40 Gran # 4.22 (1.4-6.5) 02/26/18 06:40 Lymph # (Auto) 3.0 (1.2-3.4) 02/26/18 06:40 Page # (Auto) 0.6 (0.1-0.6) 02/26/18 06:40 Eos # (Auto) 0.2 (0.0-0.7) 02/26/18 06:40 Baso # (Auto) 0.03 K/mm3 (0.0-2.0) 02/26/18 06:40 Sodium 140 mmol/L (132-148) 02/26/18 06:40 Potassium 3.5 mmol/L (3.6-5.0) L 02/26/18 06:40 Chloride 102 mmol/L (98-107) 02/26/18 06:40 Carbon Dioxide 29 mmol/L (21-33) 02/26/18 06:40 Anion Gap 12 (10-20) 02/26/18 06:40 BUN 16 mg/dL (7-21) 02/26/18 06:40 Creatinine 0.6 mg/dl (0.7-1.2) L 02/26/18 06:40 Est GFR ( Amer) > 60 02/26/18 06:40 Est GFR (Non-Af Amer) > 60 02/26/18 06:40 POC Glucose (mg/dL) 215 mg/dL (65-110) H 02/26/18 11:36 Random Glucose 214 mg/dL (70-110) H 02/26/18 06:40 Calcium 8.8 mg/dL (8.4-10.5) 02/26/18 06:40 Phosphorus 3.5 mg/dL (2.5-4.5) 02/26/18 06:40 Magnesium 1.7 mg/dL (1.7-2.2) 02/26/18 06:40 Total Bilirubin 0.9 mg/dL (0.2-1.3) 02/26/18 06:40 AST 21 U/L (14-36) 02/26/18 06:40 ALT 31 U/L (7-56) 02/26/18 06:40 Alkaline Phosphatase 75 U/L (38-126) 02/26/18 06:40 Total Protein 6.7 g/dL (5.8-8.3) 02/26/18 06:40 Albumin 3.9 g/dL (3.0-4.8) 02/26/18 06:40 Globulin 2.8 gm/dL 02/26/18 06:40 Albumin/Globulin Ratio 1.4 (1.1-1.8) 02/26/18 06:40 Lipase 62 U/L (23-300) 02/25/18 22:00 Urine Color Red (YELLOW) 02/25/18 23:45 Urine Appearance Bloody (CLEAR) 02/25/18 23:45 Urine pH 6.5 (4.7-8.0) 02/25/18 23:45 Ur Specific [place] 1.020 (1.005-1.035) 02/25/18 23:45 Urine Protein >=300 mg/dL (<30 mg/dL) H 02/25/18 23:45 Urine Glucose (UA) 250 mg/dL (NEGATIVE) H 02/25/18 23:45 Urine Ketones Trace mg/dL (NEGATIVE) H 02/25/18 23:45 Urine Blood Large (NEGATIVE) H 02/25/18 23:45 Urine Nitrate Positive (NEGATIVE) H 02/25/18 23:45 Urine Bilirubin Negative (NEGATIVE) 02/25/18 23:45 Urine Urobilinogen 1.0 E.U./dL (<1 E.U./dL) H 02/25/18 23:45 Ur Leukocyte Esterase Moderate Juan/uL (NEGATIVE) H 02/25/18 23:45 Urine RBC Tntc /hpf (0-2) 02/25/18 23:45 Urine WBC 20 - 25 /hpf (0-6) 02/25/18 23:45 Ur Epithelial Cells 0 - 2 /hpf (0-5) 02/25/18 23:45 Urine Bacteria Mod (NEG) 02/25/18 23:45 - Hospital Course Hospital Course: This is a 52 yo F with PMH of Diabetes and Chronic nephrolithiasis who presented with 2-day duration of left sided flank pain and hematuria. Of note, patient had a urinary stent removed by Dr. Patel approximately 1 week prior to presentation. CT imaging obtained on admission was notable for left hydroureteronephrosis without evidence of obstructing calculi. Urology was consulted for this admission, and after reviewing imaging, stated that this was likely spasm rather than stone, and also noted UTI based on UA results on admission. He recommended discharging patient on antibiotics and pain control. Scripts for Bactrim DS (to complete a 10-day tx course), Zofran ODT prn (for nausea/vomiting), and Percocet PRN (pain control) where sent to the in-house outpatient pharmacy to be available to pt on discharge. She was instructed to resume all home medications, to take all new prescriptions as instructed, and to follow up with her PMD within 1 week and her Urologist as per their scheduling. Patient and family at bedside expressed understanding and agreement. Patient was then discharged. Patient seen, reviewed, and discussed with attending, Dr. Cardona. Discharge Exam - Head Exam Head Exam: ATRAUMATIC, NORMAL INSPECTION, NORMOCEPHALIC - Eye Exam Eye Exam: EOMI, Normal appearance. absent: Conjunctival injection, Scleral icterus Pupil Exam: absent: Irregular, Unequal - ENT Exam ENT Exam: Mucous Membranes Moist - Neck Exam Neck exam: Full Rom, Normal Inspection - Respiratory Exam Respiratory Exam: Clear to PA & Lateral, NORMAL BREATHING PATTERN, UNREMARKABLE. absent: Accessory Muscle Use, Chest Wall Tenderness, Decreased Breath Sounds, Prolonged Expiratory Phase, Rales, Rhonchi, Wheezes, Respiratory Distress - Cardiovascular Exam Cardiovascular Exam: REGULAR RHYTHM, RRR, +S1, +S2. absent: Bradycardia, Tachycardia, Irregular Rhythm, JVD, +S4 - GI/Abdominal Exam GI & Abdominal Exam: Normal Bowel Sounds, Soft, Tenderness (tender to palpation at left flank and at division between right upper and lower abdominal quadrants , no right sided tenderness appreciated). absent: Diminished Bowel Sounds, Distended, Firm, Guarding, Hyperactive Bowel Sounds, Hypoactive Bowel Sounds, Rigid, Unremarkable - Extremities Exam Extremities exam: normal capillary refill, normal inspection, pedal pulses present - Back Exam Back exam: CVA tenderness (L). absent: CVA tenderness (R) - Psychiatric Exam Additional comments: awake and alert, sitting up in bed without issue or difficulty, following all commands appropriately, moving all extremities spontaneously - Skin Skin Exam: Dry, Intact, Normal Color, Warm Discharge Plan - Discharge Medications Prescriptions: Ondansetron ODT [Zofran ODT] 4 mg PO Q6 PRN #16 odt PRN Reason: Nausea/Vomiting oxyCODONE/Acetaminophen [Percocet 5/325 mg Tab] 1 ea PO Q6H PRN #8 tab PRN Reason: Pain, Severe (8-10) Sulfamethoxazole/Trimethoprim [Bactrim DS 800 mg-160 mg] 1 tab PO BID #18 tab - Follow Up Plan Condition: STABLE Disposition: HOME/ ROUTINE Instructions: Kidney Stones (DC), Urinary Tract Infection, Adult (DC), Hydronephrosis, Adult (DC) Additional Instructions: -Please resume all home medications as prescribed. -Please start your antibiotics tomorrow, to complete a 10-day course of antibiotics for your urinary tract infection. DO NOT stop taking the antibiotics early, even if you feel better. -You have been given a prescription for oral Zofran tabs, they can be placed under your tongue and will dissolve if you are having problems with vomiting. Only take as needed. -You have been given a prescription for Percocet for pain, take only as needed. -All of your prescriptions were transmitted to our in-house outpatient pharmacy so they will be available to you on discharge. Please continue to obtain refills for your home medications at your usual pharmacy. -Please follow up with your PMD (Dr. Villagomez) within 1 week of discharge and with your Urologist when instructed by him/his office. -Please return to a hospital if you experience worsening or new concerning symptoms. Referrals: Iesha Villagomez DO [Primary Care Provider] - Christiano Patel MD [Staff Provider] - <Wendy Cardona - Last Filed: 02/26/18 16:39> Provider - Provider Date of Admission: 02/26/18 02:12 Attending physician: Wendy Cardona MD Primary care physician: Iesha Villagomez DO Hospital Course - Lab Results Lab Results: Most Recent Lab Values WBC 8.1 10^3/ul (4.5-11.0) D 02/26/18 06:40 RBC 3.98 10^6/uL (3.5-6.1) 02/26/18 06:40 Hgb 12.3 g/dL (12.0-16.0) 02/26/18 06:40 Hct 36.2 % (36.0-48.0) 02/26/18 06:40 MCV 91.0 fl (80.0-105.0) 02/26/18 06:40 MCH 30.9 pg (25.0-35.0) 02/26/18 06:40 MCHC 34.0 g/dl (31.0-37.0) 02/26/18 06:40 RDW 12.8 % (11.5-14.5) 02/26/18 06:40 Plt Count 180 10^3/uL (120.0-450.0) 02/26/18 06:40 MPV 11.8 fl (7.0-11.0) H 02/26/18 06:40 Gran % 52.4 % (50.0-68.0) 02/26/18 06:40 Lymph % (Auto) 37.0 % (22.0-35.0) H 02/26/18 06:40 Page % (Auto) 7.7 % (1.0-6.0) H 02/26/18 06:40 Eos % (Auto) 2.5 % (1.5-5.0) 02/26/18 06:40 Baso % (Auto) 0.4 % (0.0-3.0) 02/26/18 06:40 Gran # 4.22 (1.4-6.5) 02/26/18 06:40 Lymph # (Auto) 3.0 (1.2-3.4) 02/26/18 06:40 Page # (Auto) 0.6 (0.1-0.6) 02/26/18 06:40 Eos # (Auto) 0.2 (0.0-0.7) 02/26/18 06:40 Baso # (Auto) 0.03 K/mm3 (0.0-2.0) 02/26/18 06:40 Sodium 140 mmol/L (132-148) 02/26/18 06:40 Potassium 3.5 mmol/L (3.6-5.0) L 02/26/18 06:40 Chloride 102 mmol/L (98-107) 02/26/18 06:40 Carbon Dioxide 29 mmol/L (21-33) 02/26/18 06:40 Anion Gap 12 (10-20) 02/26/18 06:40 BUN 16 mg/dL (7-21) 02/26/18 06:40 Creatinine 0.6 mg/dl (0.7-1.2) L 02/26/18 06:40 Est GFR ( Amer) > 60 02/26/18 06:40 Est GFR (Non-Af Amer) > 60 02/26/18 06:40 POC Glucose (mg/dL) 215 mg/dL (65-110) H 02/26/18 11:36 Random Glucose 214 mg/dL (70-110) H 02/26/18 06:40 Calcium 8.8 mg/dL (8.4-10.5) 02/26/18 06:40 Phosphorus 3.5 mg/dL (2.5-4.5) 02/26/18 06:40 Magnesium 1.7 mg/dL (1.7-2.2) 02/26/18 06:40 Total Bilirubin 0.9 mg/dL (0.2-1.3) 02/26/18 06:40 AST 21 U/L (14-36) 02/26/18 06:40 ALT 31 U/L (7-56) 02/26/18 06:40 Alkaline Phosphatase 75 U/L (38-126) 02/26/18 06:40 Total Protein 6.7 g/dL (5.8-8.3) 02/26/18 06:40 Albumin 3.9 g/dL (3.0-4.8) 02/26/18 06:40 Globulin 2.8 gm/dL 02/26/18 06:40 Albumin/Globulin Ratio 1.4 (1.1-1.8) 02/26/18 06:40 Lipase 62 U/L (23-300) 02/25/18 22:00 Urine Color Red (YELLOW) 02/25/18 23:45 Urine Appearance Bloody (CLEAR) 02/25/18 23:45 Urine pH 6.5 (4.7-8.0) 02/25/18 23:45 Ur Specific [place] 1.020 (1.005-1.035) 02/25/18 23:45 Urine Protein >=300 mg/dL (<30 mg/dL) H 02/25/18 23:45 Urine Glucose (UA) 250 mg/dL (NEGATIVE) H 02/25/18 23:45 Urine Ketones Trace mg/dL (NEGATIVE) H 02/25/18 23:45 Urine Blood Large (NEGATIVE) H 02/25/18 23:45 Urine Nitrate Positive (NEGATIVE) H 02/25/18 23:45 Urine Bilirubin Negative (NEGATIVE) 02/25/18 23:45 Urine Urobilinogen 1.0 E.U./dL (<1 E.U./dL) H 02/25/18 23:45 Ur Leukocyte Esterase Moderate Juan/uL (NEGATIVE) H 02/25/18 23:45 Urine RBC Tntc /hpf (0-2) 02/25/18 23:45 Urine WBC 20 - 25 /hpf (0-6) 02/25/18 23:45 Ur Epithelial Cells 0 - 2 /hpf (0-5) 02/25/18 23:45 Urine Bacteria Mod (NEG) 02/25/18 23:45 Attending/Attestation - Attestation I have personally seen and examined this patient.: Yes I have fully participated in the care of the patient.: Yes I have reviewed all pertinent clinical information, including history, physical exam and plan: Yes Notes (Text): 02/26/18 14:45 52 year old female with past medical history of diabetes and nephrolithiasis s/ p recent stent and removal who presented last night with complaint of left flank pain. CT scan showed left hydroureteronephrosis without evidence of obstructing calculi. She was admitted for pain control and UTI. Following day her symptoms improved. Case was discussed with Dr. Patel who recommended outpatient follow up and course of antibiotics. She complained of left leg pain which also improved. LE doppler was negative. Patient is discharged home on po antibiotics. Follow up with urology, Dr. Patel. Wendy Cardona MD Hospitalist.
[2018-02-26 15:11] VITALS: BP 127/83; PULSE 83; TEMP 98; O2SAT 96
--- NOTE | 2018-02-26 15:18 | US ---
PROCEDURE: Bilateral lower extremity venous duplex Doppler. HISTORY: left lower extremity calf pain, recent procedure. COMPARISON: None available. TECHNIQUE: Bilateral common femoral, superficial femoral, popliteal and posterior tibial veins were evaluated. Flow was assessed with color Doppler, compressibility, assessment of phasic flow and augmentation response. FINDINGS: COMMON FEMORAL VEIN: Right CFV: Unremarkable. Left CFV: Unremarkable. SUPERFICIAL FEMORAL VEIN: Right SFV: Unremarkable. Left SFV: Unremarkable. POPLITEAL VEIN: Right Popliteal: Unremarkable. Left Popliteal: Unremarkable. POSTERIOR TIBIAL VEIN: Right PTV: Unremarkable. Left PTV: Unremarkable. OTHER FINDINGS: None. IMPRESSION: No evidence of deep venous thrombosis.
[2018-02-27] MEDS ORDERED: cefTRIAXone 1 gm 1 GM/100 ML BAG IVPB SCH (10:00)
== END 2018-02-26 16:24 | disposition home or self-care (01) ==
LOC: ED 20:59 → ERH 02-26 02:12 → 5RSO 02-26 03:20
PROVIDERS: ADMIT Internal Medicine; ATTEND Internal Medicine
DX: N39.0 Urinary tract infection, site not specified (principal); E11.9 Type 2 diabetes mellitus without complications; N13.2 Hydronephrosis with renal and ureteral calculous obstruction; Z87.442 Personal history of urinary calculi; Z90.721 Acquired absence of ovaries, unilateral; Z83.3 Family history of diabetes mellitus; J45.909 Unspecified asthma, uncomplicated; K21.9 Gastro-esophageal reflux disease without esophagitis; E66.9 Obesity, unspecified; Z68.32 Body mass index [BMI] 32.0-32.9, adult
CPT/HCPCS: 36415; 74176; 80053; 81001; 81003; 82948; 83690; 83735; 84100; 85025; 85027; 87086; 93970; 96361; 96365; 96372; 96375; 96376; 99285; G0378; J0696; J1170; J1650; J2270; J2405; J3475; J7040

== ENCOUNTER 2018-07-28 20:45 | Observation (INO) | payer OTHER ==
[2018-07-28 20:46] VITALS: BMI 32.1
[2018-07-28] MEDS ORDERED: Morphine 4 mg/ml ISec IVP STA ×2 (21:19→23:17)
--- NOTE | 2018-07-28 21:28 | ED PDOC ---
Addendum entered and electronically signed by Troy Tolliver DO 07/29/18 01:42: Medical Decision Making ED Course and Treatment: 07/29/18 01:[address] Aguilera, spoke with Dr. Patel regarding case. Has agreed to consult. - Lab Interpretations Lab Results: 07/28/18 22:19 07/28/18 22:19 Lab Results 07/28/18 22:21: Urine Color Yellow, Urine Appearance Cloudy, Urine pH 7.5, Ur Specific [place] 1.020, Urine Protein Trace H, Urine Glucose (UA) >=1000, Urine Ketones Trace H, Urine Blood Large H, Urine Nitrate Negative, Urine Bilirubin Negative, Urine Urobilinogen 0.2, Ur Leukocyte Esterase Negative, Urine RBC 25 - 30, Urine WBC Negative, Ur Epithelial Cells None, Amorphous Sediment Trace, Urine Bacteria Neg 07/28/18 22:19: Sodium 140, Potassium 4.0, Chloride 102, Carbon Dioxide 25, A nion Gap 17, BUN 15, Creatinine 0.5 L, Est GFR ( Amer) > 60, Est GFR (Non-Af Amer) > 60, Random Glucose 256 H, Calcium 10.4, Phosphorus 3.7, Ma gnesium 2.0, Total Bilirubin 0.9, AST 26, ALT 25, Alkaline Phosphatase 120, Total Protein 8.2, Albumin 4.8, Globulin 3.3, Albumin/Globulin Ratio 1.4 07/28/18 22:19: WBC 8.0, RBC 4.80, Hgb 15.3 D, Hct 43.9, MCV 91.5, MCH 31.9, MCHC 34.9, RDW 13.1, Plt Count 209, MPV 11.3 H, Gran % 50.3, Lymph % (Auto) 40.5 H, Gem % (Auto) 7.6 H, Eos % (Auto) 1.4 L, Baso % (Auto) 0.2, Gran # 4.03, Lymph # (Auto) 3.3, Gem # (Auto) 0.6, Eos # (Auto) 0.1, Baso # (Auto) 0.02 - RAD Interpretation Radiology Orders: 07/28/18 21:17 ABD & PELVIS W/O PO OR IV CONT [CT] Stat - Medication Orders Current Medication Orders: Sodium Chloride (Sodium Chloride 0.9%) 1,000 mls @ 150 mls/hr IV .Q6H40M [facility] Last Admin: 07/28/18 21:54 Dose: 150 mls/hr eMAR Start Stop Document 07/28/18 21:54 LA (Rec: 07/28/18 21:54 LA [id number]) Intravenous Solution Start Date 07/28/18 Start Time 21:54 Discontinued Medications Morphine Sulfate (Morphine) 4 mg IVP STAT STA Stop: 07/28/18 21:20 Last Admin: 07/28/18 21:53 Dose: 4 mg MAR Pain Assessment Document 07/28/18 21:53 LA (Rec: 07/28/18 21:54 LA [id number]) Pain Reassessment Is this a pain reassessment? No Sleep Is patient sleeping during reassessment? No Presence of Pain Presence of Pain Yes Pain Scale Used Protocol: [facility] Pain Scale Used Numeric Location Left, Right or Bilateral Left Upper or Lower Lower Pain Location Body Site Abdomen Back Description Intensity of Pain at present 8 Pain Behavior Guarding IVP Administration Document 07/28/18 21:53 LA (Rec: 07/28/18 21:54 LA [id number]) Charges for Administration # of IVP Administrations 1 Morphine Sulfate (Morphine) 4 mg IVP STAT STA Stop: 07/28/18 23:18 Last Admin: 07/28/18 23:45 Dose: 4 mg MAR Pain Assessment Document 07/28/18 23:45 SS (Rec: 07/28/18 23:46 SS [id number]) Pain Reassessment Is this a pain reassessment? No Sleep Is patient sleeping during reassessment? Yes Presence of Pain Presence of Pain Yes Pain Scale Used Protocol: [facility] Pain Scale Used Numeric Location Left, Right or Bilateral Left Upper or Lower Lower IVP Administration Document 07/28/18 23:45 SS (Rec: 07/28/18 23:46 SS [id number]) Charges for Administration # of IVP Administrations 1 Ondansetron HCl (Zofran Inj) 4 mg IVP STAT STA Stop: 07/28/18 21:20 Last Admin: 07/28/18 21:53 Dose: 4 mg IVP Administration Document 07/28/18 21:53 LA (Rec: 07/28/18 21:53 LA [id number]) Charges for Administration # of IVP Administrations 1 Original Note: Arrival/HPI - General Historian: Patient - History of Present Illness Narrative History of Present Illness (Text): 07/28/18 21:22 53 yo F with PMHx of HTN, DM, chronic nephrolithiasis presenting to ED with acute L sided abdominal/flank pain x 3days. Per patient, symptoms began 3 days ago but significantly worsened this AM. She described the pain as constant, cramping L flank/abdominal pain with radiation down to the groin. Lying down make it better. Sitting makes it worse. Pt also endorses associated dysuria and hematuria x 3 days, + nausea. No vomiting/diarrhea/constipation. ROS otherwise negative. PMHx: HTN, DM, chronic nephrolithiasis PSHx: c section x1, R salpingoophorectomy for atopic , R shoulder surgery Allergies: NKDA Home medications: as per chart Social Hx: denies alcohol, tobacco, illicit drug use Family Hx: unknown Urologist: Dr. Patel Time/Duration: 24 hours Symptom Onset: Sudden Symptom Course: Unchanged Quality: Cramping, Burning Severity Level: Moderate Activities at Onset: Light <Troy Tolliver - Last Filed: 07/29/18 00:41> <Armando Aguilera - Last Filed: 07/29/18 00:51> - General Chief Complaint: Abdominal Pain Time Seen by Provider: 07/28/18 20:47 Past Medical History - Provider Review Nursing Documentation Reviewed: Yes - Infectious Disease Hx of Infectious Diseases: None - Cardiac Hx Cardiac Disorders: No - Pulmonary Hx Respiratory Disorders: No - Neurological Hx Neurological Disorder: No - HEENT Hx HEENT Disorder: No - Renal Hx Renal Disorder: No Hx Kidney Stones: Yes - Endocrine/Metabolic Hx Endocrine Disorders: Yes Hx Diabetes Mellitus Type 2: Yes (takes po tabs and victoza) - Hematological/Oncological Hx Blood Transfusions: Yes - Integumentary Hx Dermatological Disorder: No - Musculoskeletal/Rheumatological Hx Musculoskeletal Disorders: Yes - Gastrointestinal Hx Gastrointestinal Disorders: No - Genitourinary/Gynecological Hx Genitourinary Disorders: Yes Hx Incontinence: Yes - Psychiatric Hx Psychophysiologic Disorder: No Hx Substance Use: No - Surgical History Hx Section: Yes Hx Musculoskeletal Surgery: Yes (RIGHT SHOULDER TEAR REPAIRED) Other/Comment: ETOPIC PREG. SURGERY DONE ONE TUBE AND OVARY REMOVED-PT. BELIEVES RIGHT SIDE. LOWER BACK SURGERY; arm/jaw surgery - Anesthesia Hx Anesthesia: Yes Hx Anesthesia Reactions: No Hx Malignant Hyperthermia: No <Troy Tolliver - Last Filed: 07/29/18 00:41> Family/Social History - Physician Review Nursing Documentation Reviewed: Yes Family/Social History: Unknown Family HX Smoking Status: Never Smoked Hx Alcohol Use: No Hx Substance Use: No <Troy Tolliver - Last Filed: 07/29/18 00:41> Allergies/Home Meds <Troy Tolliver - Last Filed: 07/29/18 00:41> <Armando Aguilera - Last Filed: 07/29/18 00:51> Allergies/Adverse Reactions: Allergies No Known Allergies Allergy (Verified 07/28/18 20:57) Home Medications: Home Meds Medication Instructions Recorded Confirmed Metformin HCl 1,000 mg PO BID 10/04/15 12/01/17 Liraglutide [Victoza 2-Nav] 0.6 mg SQ DAILY 10/29/17 12/01/17 Review of Systems - Review of Systems Constitutional: Normal Eyes: Normal ENT: Normal Respiratory: Normal Cardiovascular: Normal Gastrointestinal: Abdominal Pain (LUQ ), Nausea. absent: Vomiting <Troy Tolliver - Last Filed: 07/29/18 00:41> Physical Exam - Physical Exam Narrative Physical Exam (Text): 07/28/18 21:31 TTP LUQ, LLQ abdomen +suprapubic tenderness +L CVA tenderness Vital Signs Reviewed: Yes Vital Signs Pulse Resp BP Pulse Ox 07/28/18 20:57 82 18 196/90 H 98 Blood Pressure: Hypertensive Pulse: Regular Respiratory Rate: Normal Appearance: Positive for: Non-Toxic, Uncomfortable Pain Distress: Moderate Mental Status: Positive for: Alert and Oriented X 3 - Systems Exam Head: Present: Atraumatic, Normocephalic Pupils: Present: PERRL Extroacular Muscles: Present: EOMI Conjunctiva: Present: Normal Ears: Present: Normal Mouth: Present: Moist Mucous Membranes Pharnyx: Present: Normal Nose (External): Present: Atraumatic Nose (Internal): Present: Normal Inspection Neck: Present: Normal Range of Motion Respiratory/Chest: Present: Clear to Auscultation, Good Air Exchange. No: Respiratory Distress, Accessory Muscle Use, Wheezes, Rales, Rhonchi Cardiovascular: Present: Regular Rate and Rhythm, Normal S1, S2 Abdomen: Present: Tenderness (TTP LUQ), Normal Bowel Sounds. No: Distention, Mass/Organomegaly Back: Present: Normal Inspection, CVA Tenderness (L side) Upper Extremity: Present: Normal Inspection, Normal ROM, Capillary Refill < 2s. No: Cyanosis, Edema Lower Extremity: Present: Normal Inspection, NORMAL PULSES, Capillary Refill < 2 s. No: Edema, CALF TENDERNESS, Cyanosis Neurological: Present: CN II-XII Intact, Speech Normal Skin: Present: Warm, Dry, Normal Color Psychiatric: Present: Alert, Oriented x 3, Normal Insight, Normal Concentration <Troy Tolliver - Last Filed: 07/29/18 00:41> Vital Signs Pulse Resp BP Pulse Ox 07/28/18 20:57 82 18 196/90 H 98 <Armando Aguilera - Last Filed: 07/29/18 00:51> Medical Decision Making ED Course and Treatment: 07/28/18 21:32 Impression: 53 yo F with PMHx of HTN, DM, chronic nephrolithiasis presenting to ED with L abdominal/flank pain radiating to the groin w/ associated dysuria and hematuria x 3days. Plan: --CBC, CMP --IVF --UA --CT abd/pelvis w/o contrast --morphine 4 mg x1 --zofran 4 mg x1 --Monitor and disposition - RAD Interpretation Radiology Orders: 07/28/18 21:17 ABD & PELVIS W/O PO OR IV CONT [CT] Stat - Medication Orders Current Medication Orders: Sodium Chloride (Sodium Chloride 0.9%) 100 mls @ 150 mls/hr IV .Q40M JON Morphine Sulfate (Morphine) 4 mg IVP STAT STA Stop: 07/28/18 21:20 Ondansetron HCl (Zofran Inj) 4 mg IVP STAT STA Stop: 07/28/18 21:20 <Troy Tolliver - Last Filed: 07/29/18 00:41> ED Course and Treatment: 07/28/18 21:39 Bernadine Jauregui is a 53 year old female who has a past medical history of hypertension, diabetes, and nephrolithiasis presents to the emergency department today with a complaint of 3 day duration, left- sided abdominal/ flank pain. CT Abdomen and Pelvis without IV Contrast Electronically signed on Jul 28, 2018 11:38:20 EDT by: Len Iniguez M.D., Certified by [facility] Impression: No acute intra- abdominal or pelvic abnormality. 07/29/18 00:28: Case discussed in detail with medical services assistant and Dr. Duque who accept patient for admission for renal collic and intractable pain. - RAD Interpretation Radiology Orders: 07/28/18 21:17 ABD & PELVIS W/O PO OR IV CONT [CT] Stat - Medication Orders Current Medication Orders: Sodium Chloride (Sodium Chloride 0.9%) 1,000 mls @ 150 mls/hr IV .Q6H40M JON Discontinued Medications Morphine Sulfate (Morphine) 4 mg IVP STAT STA Stop: 07/28/18 21:20 Ondansetron HCl (Zofran Inj) 4 mg IVP STAT STA Stop: 07/28/18 21:20 <Armando Aguilera - Last Filed: 07/29/18 00:51> - PA / TESTING MANAGER / Resident Statement / has reviewed & agrees with the documentation as recorded. MD/ has examined the patient and agrees with the treatment plan. - Scribe Statement The provider has reviewed the documentation as recorded by the Alexandria Blankenship Provider Scribe Attestation: All medical record entries made by the Scribe were at my direction and personally dictated by me. I have reviewed the chart and agree that the record accurately reflects my personal performance of the history, physical exam, medical decision making, and the department course for this patient. I have also personally directed, reviewed, and agree with the discharge instructions and disposition. <Armando Aguilera - Last Filed: 07/29/18 00:51> Disposition/Present on Arrival - Present on Arrival Any Indicators Present on Arrival: Yes History of DVT/PE: No History of Uncontrolled Diabetes: Yes Urinary Catheter: No History of Decub. Ulcer: No History Surgical Site Infection Following: None - Disposition Have Diagnosis and Disposition been Completed?: Yes Disposition Time: 00:41 <Troy Tolliver - Last Filed: 07/29/18 00:41> <Armando Aguilera - Last Filed: 07/29/18 00:51> - Disposition Diagnosis: Intractable back pain, Flank pain, Hematuria, UTI (urinary tract infection) Patient Problems: Current Active Problems Problem Status Onset Flank pain Acute Hematuria Acute Intractable back pain Acute UTI (urinary tract infection) Acute Condition: STABLE Referrals: Iesha Villagomez DO [Primary Care Provider] - Follow up with primary Forms: [employer] (Divehi)
[2018-07-28] MEDS ORDERED: Sodium Chloride 0.9% 1,000 ML IV SCH (21:30)
[2018-07-28 22:34] LABS: BASO # 0.02 K/mm3 (0.0-2.0); BASO % 0.2 % (0.0-3.0); EOS # 0.1 (0.0-0.7); EOS % 1.4 % (1.5-5.0); GRAN # 4.03 (1.4-6.5); GRAN % 50.3 % (50.0-68.0); HEMOGLOBIN 15.3 g/dL (12.0-16.0); LYMPH # 3.3 (1.2-3.4); LYMPH % 40.5 % (22.0-35.0); MEAN CELL VOLUME 91.5 fl (80.0-105.0); MEAN CORPUSCULAR HEMOGLOBIN 31.9 pg (25.0-35.0); MEAN CORPUSCULAR HGB CONC 34.9 g/dl (31.0-37.0); MEAN PLATELET VOLUME 11.3 fl (7.0-11.0); MONO # 0.6 (0.1-0.6); MONO % 7.6 % (1.0-6.0); RBC 4.8 10^6/uL (3.5-6.1); RED CELL DISTRIBUTION WIDTH 13.1 % (11.5-14.5)
[2018-07-28 22:41] LABS: ALB/GLOB RATIO 1.4 (1.1-1.8); ALBUMIN 4.8 g/dL (3.0-4.8); ALT/SGPT 25 U/L (7-56); AST/SGOT 26 U/L (14-36); BLOOD UREA NITROGEN 15 mg/dL (7-21); CALCIUM 10.4 mg/dL (8.4-10.5); GFR NON-AFRICAN AMERICAN > 60
[2018-07-28 22:49] LABS: PH,URINE 7.5 (4.7-8.0); URINE BILIRUBIN NEGATIVE (NEGATIVE); URINE BLOOD LARGE (NEGATIVE); URINE GLUCOSE (UA) >=1000 mg/dL (NEGATIVE); URINE LEUKOCYTE ESTERASE NEGATIVE Leu/uL (NEGATIVE); URINE PROTEIN TRACE mg/dL (<30 mg/dL); URINE UROBILINOGEN 0.2 E.U./dL (<1 E.U./dL)
[2018-07-28 22:50] LABS: URINE APPEARANCE CLOUDY (CLEAR); URINE COLOR YELLOW (YELLOW)
[2018-07-28 22:56] LABS: URINE AMORPHOUS SEDIMENT TRACE; URINE BACTERIA NEG (NEG); URINE RBC 25 - 30 /hpf (0-2); URINE WBC NEGATIVE /hpf (0-6)
[2018-07-29] MEDS ORDERED: Sodium Chloride 0.45% 1,000 ML IV SCH (02:30)
[2018-07-29] MEDS: Morphine 2 mg/ml ISec IVP PRN ×2 (03:36→08:59)
--- NOTE | 2018-07-29 06:16 | CP.PCM.HP ---
History of Present Illness - History of Present Illness History of Present Illness: Zi Simmons PGY1 History and Physical for Dr Montrell Duque. Pt is a 53yo female with a PMH of HTN, DM, chronic nephrolithiasis who presents to the ED complaining of acute left sided flank pain for the past 3 days. The pain has gotten progressively worse of the past 3 days. Pt states the pain was 8/10 before she got to the hospital. The pain has improved to 6/10 at this time. The pain comes and goes, she describes the pain as sharp. She states the pain is very similar to the time that she had kidney stones. Pt states she had her kidn ey stones treated with "shock waves" and also had a stent placed. Pt states she tried tylenol and oxycodone, neither of which helped relieved the pain very much. The pain radiates to her back. She denies burning with urination, but it does hurt. Pt also endorses associated dysuria and hematuria for the past 3 days, with associated nausea. Pt denies vomiting/diarrhea/constipation. A 12 point ROS was obtained and added to the HPI where appropriate. PMH: HTN, DM, chronic nephrolithiasis PSH: c section x1, "back surgery" lithotripsy SH: denies alcohol, tobacco, drugs FH: mother 50, surgical complications, father 70 no known health problems Allergies: NKDA PMD: Dr Villagomez Urologist: Dr. Patel Present on Admission - Present on Admission Any Indicators Present on Admission: No Review of Systems - Review of Systems Review of Systems: a 12 point ROS was obtained and added to the HPI where appropriate Past Patient History - Infectious Disease Hx of Infectious Diseases: None - Past Medical History & Family History Past Medical History?: Yes - Past Social History Smoking Status: Never Smoked - CARDIAC Hx Cardiac Disorders: Yes Hx Hypertension: Yes (lisinopril) - PULMONARY Hx Respiratory Disorders: No - NEUROLOGICAL Hx Neurological Disorder: No - HEENT Hx HEENT Problems: No - RENAL Hx Chronic Kidney Disease: Yes Hx Kidney Stones: Yes - ENDOCRINE/METABOLIC Hx Endocrine Disorders: Yes Hx Diabetes Mellitus Type 2: Yes (takes po tabs and victoza) - HEMATOLOGICAL/ONCOLOGICAL Hx Blood Disorders: Yes Hx Anemia: Yes (blood transfusion) - INTEGUMENTARY Hx Dermatological Problems: No - MUSCULOSKELETAL/RHEUMATOLOGICAL Hx Falls: No - GASTROINTESTINAL Hx Gastrointestinal Disorders: No - GENITOURINARY/GYNECOLOGICAL Hx Genitourinary Disorders: No - PSYCHIATRIC Hx Psychophysiologic Disorder: No - SURGICAL HISTORY Hx Surgeries: Yes Hx Musculoskeletal Surgery: Yes (RIGHT SHOULDER TEAR REPAIRED) Other/Comment: ETOPIC PREG. SURGERY DONE ONE TUBE AND OVARY REMOVED-PT. BELIEVES RIGHT SIDE. LOWER BACK SURGERY; arm/jaw surgery - ANESTHESIA Hx Anesthesia: Yes Hx Anesthesia Reactions: No Hx Malignant Hyperthermia: No Meds Allergies/Adverse Reactions: Allergies Allergy/AdvReac Type Severity Reaction Status Date / Time No Known Allergies Allergy Verified 07/28/18 20:57 Physical Exam - Head Exam Head Exam: ATRAUMATIC, NORMOCEPHALIC - ENT Exam ENT Exam: Mucous Membranes Moist - Respiratory Exam Respiratory Exam: Clear to Auscultation Bilateral, NORMAL BREATHING PATTERN. absent: Accessory Muscle Use, Respiratory Distress, Stridor - Cardiovascular Exam Cardiovascular Exam: RRR, +S1, +S2 - GI/Abdominal Exam GI & Abdominal Exam: Normal Bowel Sounds, Soft, Tenderness - Extremities Exam Extremities exam: Negative for: calf tenderness, pedal edema - Back Exam Back exam: CVA tenderness (L) - Neurological Exam Neurological exam: Alert, Oriented x3 - Psychiatric Exam Psychiatric exam: Normal Affect, Normal Mood - Skin Skin Exam: Dry, Normal Color, Warm Results - Vital Signs Recent Vital Signs: Last Vital Signs Temp Pulse 80 07/29/18 00:00 Resp 19 07/29/18 01:44 BP 143/90 07/29/18 00:00 Pulse Ox 100 07/29/18 01:50 - Labs Result Diagrams: 07/28/18 22:19 07/28/18 22:19 Labs: Laboratory Results - last 24 hr 07/28/18 07/28/18 07/28/18 22:19 22:19 22:21 WBC 8.0 RBC 4.80 Hgb 15.3 D Hct 43.9 MCV 91.5 MCH 31.9 MCHC 34.9 RDW 13.1 Plt Count 209 MPV 11.3 H Gran % 50.3 Lymph % (Auto) 40.5 H [place] % (Auto) 7.6 H Eos % (Auto) 1.4 L Baso % (Auto) 0.2 Gran # 4.03 Lymph # (Auto) 3.3 [place] # (Auto) 0.6 Eos # (Auto) 0.1 Baso # (Auto) 0.02 Sodium 140 Potassium 4.0 Chloride 102 Carbon Dioxide 25 Anion Gap 17 BUN 15 Creatinine 0.5 L Est GFR ( Amer) > 60 Est GFR (Non-Af Amer) > 60 Random Glucose 256 H Calcium 10.4 Phosphorus 3.7 Magnesium 2.0 Total Bilirubin 0.9 AST 26 ALT 25 Alkaline Phosphatase 120 Total Protein 8.2 Albumin 4.8 Globulin 3.3 Albumin/Globulin Ratio 1.4 Urine Color Yellow Urine Appearance Cloudy Urine pH 7.5 Ur Specific [place] 1.020 Urine Protein Trace H Urine Glucose (UA) >=1000 Urine Ketones Trace H Urine Blood Large H Urine Nitrate Negative Urine Bilirubin Negative Urine Urobilinogen 0.2 Ur Leukocyte Esterase Negative Urine RBC 25 - 30 Urine WBC Negative Ur Epithelial Cells None Amorphous Sediment Trace Urine Bacteria Neg Assessment & Plan - Assessment and Plan (Free Text) Assessment: Pt is a 53yo female with a PMH of HTN, DM, chronic nephrolithiasis who presents to the ED complaining of acute left sided flank pain for the past 3 days. The pain has gotten progressively worse of the past 3 days. Plan: Left Sided Renal Colic - Zofran prn - Morphine 2mg Q6h PRN - Half Normal Saline @ 150 ml/hr - UA: large blood - CTAP: no signs of nephrolithiasis or hydronephrosis, no signs of acute abnormality - Urology: Dr. Patel HTN - continue home lisinopril 5mg History of Diabetes - RISS Medium - Accuchecks ACHS Ppx - Protonix - Lovenox - HHD Pt seen, examined, assessment and plan discussed with Dr Montrell Simmons PGY1 - Date & Time Date: 07/29/18 Time: 07:47
[2018-07-29 11:00] VITALS: RESP 20
[2018-07-29] MEDS ORDERED: Insulin Reg-MEDIUM-Coverage SC SCH (11:30)
--- NOTE | 2018-07-29 11:52 | CT ---
Date of service: 07/28/2018 PROCEDURE: CT Abdomen and Pelvis without intravenous contrast HISTORY: L side flank/abdominal pain COMPARISON: CT scan of the abdomen and pelvis dated 02/25/2018. TECHNIQUE: Contiguous images were obtained from the domes of the diaphragms to the upper thighs without the administration of intravenous contrast. Oral contrast was not administered. Radiation dose: Total exam DLP = 602 mGy-cm. This CT exam was performed using one or more of the following dose reduction techniques: Automated exposure control, adjustment of the mA and/or kV according to patient size, and/or use of iterative reconstruction technique. FINDINGS: LOWER THORAX: Unremarkable. LIVER: Mild hepatic steatosis. No gross lesion or ductal dilatation. GALLBLADDER AND BILE DUCTS: Unremarkable. PANCREAS: Suggestion of pancreatic divisum. No gross lesion or ductal dilatation. SPLEEN: Unremarkable. ADRENALS: Unremarkable. No mass. KIDNEYS AND URETERS: Unremarkable. No hydronephrosis. No solid mass. VASCULATURE: Unremarkable. No aortic aneurysm. BOWEL: Unremarkable. No obstruction. No gross mural thickening. APPENDIX: Unremarkable. Normal appendix. PERITONEUM: Unremarkable. No free fluid. No free air. LYMPH NODES: Unremarkable. No enlarged lymph nodes. BLADDER: Unremarkable. REPRODUCTIVE: Small calcified uterine fibroid. BONES: No acute fracture. Multilevel spinal degenerative changes, worst at L4-5. Grade 1 anterolisthesis of L4 on L5. OTHER FINDINGS: None. IMPRESSION: No obstructive uropathy or evidence of recently passed genitourinary calculus. No acute abdominal pelvic pathology. Stable findings as above.
[2018-07-29 16:48] VITALS: BP 112/73; PULSE 70; TEMP 98.3; O2SAT 96
--- NOTE | 2018-07-29 17:07 | CP.PCM.DIS ---
<Leeroy Brown - Last Filed: 07/29/18 16:59> Provider - Provider Date of Admission: 07/29/18 00:49 Attending physician: Wendy Cardona MD Primary care physician: Iesha Villagomez DO Consults: Urology- Dr. Christiano Patel Time Spent in preparation of Discharge (in minutes): 70 Hospital Course - Lab Results Lab Results: Most Recent Lab Values WBC 8.0 10^3/ul (4.5-11.0) 07/28/18 22:19 RBC 4.80 10^6/uL (3.5-6.1) 07/28/18 22:19 Hgb 15.3 g/dL (12.0-16.0) D 07/28/18 22:19 Hct 43.9 % (36.0-48.0) 07/28/18 22:19 MCV 91.5 fl (80.0-105.0) 07/28/18 22:19 MCH 31.9 pg (25.0-35.0) 07/28/18 22:19 MCHC 34.9 g/dl (31.0-37.0) 07/28/18 22:19 RDW 13.1 % (11.5-14.5) 07/28/18 22:19 Plt Count 209 10^3/uL (120.0-450.0) 07/28/18 22:19 MPV 11.3 fl (7.0-11.0) H 07/28/18 22:19 Gran % 50.3 % (50.0-68.0) 07/28/18 22:19 Lymph % (Auto) 40.5 % (22.0-35.0) H 07/28/18 22:19 [place] % (Auto) 7.6 % (1.0-6.0) H 07/28/18 22:19 Eos % (Auto) 1.4 % (1.5-5.0) L 07/28/18 22:19 Baso % (Auto) 0.2 % (0.0-3.0) 07/28/18 22:19 Gran # 4.03 (1.4-6.5) 07/28/18 22:19 Lymph # (Auto) 3.3 (1.2-3.4) 07/28/18 22:19 [place] # (Auto) 0.6 (0.1-0.6) 07/28/18 22:19 Eos # (Auto) 0.1 (0.0-0.7) 07/28/18 22:19 Baso # (Auto) 0.02 K/mm3 (0.0-2.0) 07/28/18 22:19 Sodium 140 mmol/L (132-148) 07/28/18 22:19 Potassium 4.0 mmol/L (3.6-5.0) 07/28/18 22:19 Chloride 102 mmol/L (98-107) 07/28/18 22:19 Carbon Dioxide 25 mmol/L (21-33) 07/28/18 22:19 Anion Gap 17 (10-20) 07/28/18 22:19 BUN 15 mg/dL (7-21) 07/28/18 22:19 Creatinine 0.5 mg/dl (0.7-1.2) L 07/28/18 22:19 Est GFR ( Amer) > 60 07/28/18 22:19 Est GFR (Non-Af Amer) > 60 07/28/18 22:19 POC Glucose (mg/dL) 197 mg/dL (65-110) H 07/29/18 16:06 Random Glucose 256 mg/dL (70-110) H 07/28/18 22:19 Calcium 10.4 mg/dL (8.4-10.5) 07/28/18 22:19 Phosphorus 3.7 mg/dL (2.5-4.5) 07/28/18 22:19 Magnesium 2.0 mg/dL (1.7-2.2) 07/28/18 22:19 Total Bilirubin 0.9 mg/dL (0.2-1.3) 07/28/18 22:19 AST 26 U/L (14-36) 07/28/18 22:19 ALT 25 U/L (7-56) 07/28/18 22:19 Alkaline Phosphatase 120 U/L (38-126) 07/28/18 22:19 Total Protein 8.2 g/dL (5.8-8.3) 07/28/18 22:19 Albumin 4.8 g/dL (3.0-4.8) 07/28/18 22:19 Globulin 3.3 gm/dL 07/28/18 22:19 Albumin/Globulin Ratio 1.4 (1.1-1.8) 07/28/18 22:19 Urine Color Yellow (YELLOW) 07/28/18 22:21 Urine Appearance Cloudy (CLEAR) 07/28/18 22:21 Urine pH 7.5 (4.7-8.0) 07/28/18 22:21 Ur Specific [place] 1.020 (1.005-1.035) 07/28/18 22:21 Urine Protein Trace mg/dL (<30 mg/dL) H 07/28/18 22:21 Urine Glucose (UA) >=1000 mg/dL (NEGATIVE) 07/28/18 22:21 Urine Ketones Trace mg/dL (NEGATIVE) H 07/28/18 22:21 Urine Blood Large (NEGATIVE) H 07/28/18 22:21 Urine Nitrate Negative (NEGATIVE) 07/28/18 22:21 Urine Bilirubin Negative (NEGATIVE) 07/28/18 22:21 Urine Urobilinogen 0.2 E.U./dL (<1 E.U./dL) 07/28/18 22:21 Ur Leukocyte Esterase Negative Juan/uL (NEGATIVE) 07/28/18 22:21 Urine RBC 25 - 30 /hpf (0-2) 07/28/18 22:21 Urine WBC Negative /hpf (0-6) 07/28/18 22:21 Ur Epithelial Cells None /hpf (0-5) 07/28/18 22:21 Amorphous Sediment Trace 07/28/18 22:21 Urine Bacteria Neg (NEG) 07/28/18 22:21 - Hospital Course Hospital Course: Upon Admission Patient is a 53 yo female with a PMH of HTN, DM, chronic nephrolithiasis who presented to the ED complaining of acute left sided flank pain for the past 3 days. The pain got worse over the course of 3 days. She states the pain is very similar to the time that she had kidney stones. Pt states she tried tylenol and oxycodone, neither of which helped relieved the pain very much. The pain radiates to her back. She denies burning with urination, but it does hurt. Pt also endorses associated dysuria and hematuria for the past 3 days, with associated nausea. Hospital Course CT AP was negative for renal stones or hydronephrosis. UA was positive for blood. Flank/back pain was managed with morphine. Pt was given fluids and monitored for any further dysuria or renal colic. Urology was consulted and recommended outpt follow up. Pt is now more comfortable, pain has diminished. She is stable for discharge. Discharge Plan Pt is stable for discharge to home as per Dr. Cardona. Pt is to f/u with PMD Dr. Villagomez and urologist Dr. Christiano Patel. Pt is to resume all home meds as mentioned in the discharge instructions. Pt is to return to he hospital if sxs worsen or recur. Patient understands plan above and and agrees. Discharge Exam - Head Exam Head Exam: ATRAUMATIC, NORMOCEPHALIC - Eye Exam Eye Exam: EOMI, PERRL Pupil Exam: NORMAL ACCOMODATION - ENT Exam ENT Exam: Mucous Membranes Moist - Respiratory Exam Respiratory Exam: Clear to PA & Lateral, NORMAL BREATHING PATTERN. absent: Rales, Rhonchi, Wheezes - Cardiovascular Exam Cardiovascular Exam: REGULAR RHYTHM, +S1, +S2. absent: Gallop, Rubs, Systolic Murmur - GI/Abdominal Exam GI & Abdominal Exam: Normal Bowel Sounds, Soft, Tenderness. absent: Distended, Firm, Rebound Additional comments: tenderness to palpation of left upper quadrant and left flank - Extremities Exam Extremities exam: normal inspection - Back Exam Back exam: paraspinal tenderness. absent: CVA tenderness (L) Additional comments: L flank tenderness - Neurological Exam Neurological exam: Alert, Oriented x3 - Psychiatric Exam Psychiatric exam: Normal Affect, Normal Mood Discharge Plan - Discharge Medications Prescriptions: traMADol [Ultram] 50 mg PO Q8H PRN #30 tab PRN Reason: Pain, Moderate (4-7) - Follow Up Plan Condition: STABLE Disposition: HOME/ ROUTINE Instructions: Flank Pain (DC), Urinary Tract Infection in Women (DC) Additional Instructions: Please follow up with your primary care physician Dr. Villagomez within one week. Please follow up with Dr. Mon, urologist, within one week. Please take the prescribed medications as directed. If symptoms worsen, please return to the emergency department. Referrals: Christiano Patel MD [Staff Provider] - <Wendy Cardona - Last Filed: 07/30/18 11:45> Provider - Provider Date of Admission: 07/29/18 00:49 Attending physician: Wendy Cardona MD Primary care physician: Iesha Villagomez [facility] Course - Lab Results Lab Results: Most Recent Lab Values WBC 8.0 10^3/ul (4.5-11.0) 07/28/18 22:19 RBC 4.80 10^6/uL (3.5-6.1) 07/28/18 22:19 Hgb 15.3 g/dL (12.0-16.0) D 07/28/18 22:19 Hct 43.9 % (36.0-48.0) 07/28/18 22:19 MCV 91.5 fl (80.0-105.0) 07/28/18 22:19 MCH 31.9 pg (25.0-35.0) 07/28/18 22: MCHC 34.9 g/dl (31.0-37.0) 07/28/18 22:19 RDW 13.1 % (11.5-14.5) 07/28/18 22:19 Plt Count 209 10^3/uL (120.0-450.0) 07/28/18 22:19 MPV 11.3 fl (7.0-11.0) H 07/28/18 22:19 Gran % 50.3 % (50.0-68.0) 07/28/18 22:19 Lymph % (Auto) 40.5 % (22.0-35.0) H 07/28/18 22:19 [place] % (Auto) 7.6 % (1.0-6.0) H 07/28/18 22:19 Eos % (Auto) 1.4 % (1.5-5.0) L 07/28/18 22:19 Baso % (Auto) 0.2 % (0.0-3.0) 07/28/18:19 Gran # 4.03 (1.4-6.5) 07/28/18 22:19 Lymph # (Auto) 3.3 (1.2-3.4) 07/28/18 22:19 [place] # (Auto) 0.6 (0.1-0.6) 07/28/18 22:19 Eos # (Auto) 0.1 (0.0-0.7) 07/28/18 22:19 Baso # (Auto) 0.02 K/mm3 (0.0-2.0) 07/28/18 22:19 Sodium 140 mmol/L (132-148) 07/28/18 22:19 Potassium 4.0 mmol/L (3.6-5.0) 07/28/18 22:19 Chloride 102 mmol/L (98-107) 07/28/18 22:19 Carbon Dioxide 25 mmol/L (21-33) 07/28/18 22:19 Anion Gap 17 (10-20) 07/28/18 22:19 BUN 15 mg/dL (7-21) 07/28/18 22:19 Creatinine 0.5 mg/dl (0.7-1.2) L 07/28/18 22:19 Est GFR ( Amer) > 60 07/28/18 22:19 Est GFR (Non-Af Amer) > 60 07/28/18 22:19 POC Glucose (mg/dL) 197 mg/dL (65-110) H 07/29/18 16:06 Random Glucose 256 mg/dL (70-110) H 07/28/18 22:19 Calcium 10.4 mg/dL (8.4-10.5) 07/28/18 22:19 Phosphorus 3.7 mg/dL (2.5-4.5) 07/28/18 22:19 Magnesium 2.0 mg/dL (1.7-2.2) 07/28/18 22:19 Total Bilirubin 0.9 mg/dL (0.2-1.3) 07/28/18 22:19 AST 26 U/L (14-36) 07/28/18 22:19 ALT 25 U/L (7-56) 07/28/18 22:19 Alkaline Phosphatase 120 U/L (38-126) 07/28/18 22:19 Total Protein 8.2 g/dL (5.8-8.3) 07/28/18 22:19 Albumin 4.8 g/dL (3.0-4.8) 07/28/18 22:19 Globulin 3.3 gm/dL 07/28/18 22:19 Albumin/Globulin Ratio 1.4 (1.1-1.8) 07/28/18 22:19 Urine Color Yellow (YELLOW) 07/28/18 22:21 Urine Appearance Cloudy (CLEAR) 07/28/18 22:21 Urine pH 7.5 (4.7-8.0) 07/28/18 22:21 Ur Specific [place] 1.020 (1.005-1.035) 07/28/18 22:21 Urine Protein Trace mg/dL (<30 mg/dL) H 07/28/18 22:21 Urine Glucose (UA) >=1000 mg/dL (NEGATIVE) 07/28/18 22:21 Urine Ketones Trace mg/dL (NEGATIVE) H 07/28/18 22:21 Urine Blood Large (NEGATIVE) H 07/28/18 22:21 Urine Nitrate Negative (NEGATIVE) 07/28/18 22:21 Urine Bilirubin Negative (NEGATIVE) 07/28/18 22:21 Urine Urobilinogen 0.2 E.U./dL (<1 E.U./dL) 07/28/18 22:21 Ur Leukocyte Esterase Negative Juan/uL (NEGATIVE) 07/28/18 22:21 Urine RBC 25 - 30 /hpf (0-2) 07/28/18 22:21 Urine WBC Negative /hpf (0-6) 07/28/18 22:21 Ur Epithelial Cells None /hpf (0-5) 07/28/18 22:21 Amorphous Sediment Trace 07/28/18 22:21 Urine Bacteria Neg (NEG) 07/28/18 22:21 Attending/Attestation - Attestation I have personally seen and examined this patient.: Yes I have fully participated in the care of the patient.: Yes I have reviewed all pertinent clinical information, including history, physical exam and plan: Yes Notes (Text): 07/29/18 53 year old female with past medical history of hypertension, diabetes and history of nephrolithiasis who presented with complaint of left flank pain. UA showed blood but negative for infection. CT abd/pelvis was negative for renal stones or hydronephrosis. Patient was seen by urology and cleared for discharge with outpatient follow up. Patient is discharged home to follow up with pmd. Follow up with urology. Case was discussed Dr. Braydon Patel. Wendy Cardona MD Hospitalist.
[2018-07-30] MEDS ORDERED: Pantoprazole 40 mg EC Tab PO SCH (07:30)
== END 2018-07-29 17:34 | disposition home or self-care (01) ==
LOC: ED 20:45 → ERH 07-29 00:49 → 3RNO 07-29 01:50
PROVIDERS: ADMIT Internal Medicine; ATTEND Internal Medicine
DX: N23 Unspecified renal colic (principal); R31.9 Hematuria, unspecified; I10 Essential (primary) hypertension; E11.9 Type 2 diabetes mellitus without complications; Z87.442 Personal history of urinary calculi
CPT/HCPCS: 74176; 80053; 81001; 82948; 83735; 84100; 85025; 96374; 96375; 96376; 99285; C9113; G0378; J2270; J2405; J7030